=== PATIENT | male | born 1980 | race Caucasian/White ===

== ENCOUNTER 2017-04-15 05:42 | Day surgery (SDC) | payer BC ==
[~2017-04-15] VITALS: Ht 190.5 cm; Wt 102.1 kg
[2017-04-15] VITALS (10 sets, daily range): BP systolic 111–137; BP diastolic 70–84
[~2017-04-15 05:42] MED LIST: BACTROBAN22 G1 TOPIC; CLINDAMYCIN HC300 MG ORAL; GABAPENTIN600 MG ORAL; LEXAPRO10 MG ORAL; PANTOPRAZOLE SO40 MG ORAL; TIVICAY50 MG ORAL; TRAZODONE HCL150 MG ORAL; TRUVADA 200 MG1 EAC1 ORAL
[2017-04-15] MEDS ORDERED: IRON325 M1 PO (06:25)
[2017-04-15] MEDS ORDERED: DESCOVY 200-251 EACH PO (06:25)
[2017-04-15] MEDS ORDERED: TAMSULOSIN HCL0.4 MG ORAL (06:25)
[2017-04-15] MEDS ORDERED: PROBIOTIC1 EAC5 PO (06:26)
[2017-04-15] MEDS ORDERED: LR 1000ml ONE (07:00)
[2017-04-15] MEDS ORDERED: Midazolam 2mg/2ml Inj ONE (07:00)
[2017-04-15] MEDS ORDERED: Sterile Water Irrig 1000ml IRRIG ONE (07:00)
[2017-04-15] MEDS ORDERED: Propofol 10mg/ml 20ml IV ONE (07:00)
[2017-04-15] MEDS ORDERED: fentaNYL 100 mcg/2 mL IV ONE (07:00)
--- NOTE | 2017-04-15 07:07 | Pre-Procedure Note/Attestation ---
Pre-Procedure Note/Attestation Complete Prior to Procedure Planned Procedure: bilateral Procedure Narrative: repair of bilateral inguinal hernias Indications for Procedure Pre-Operative Diagnosis: bilateral inguinal hernias Attestation I attest that I discussed the nature of the procedure; its benefits; risks and complications; and alternatives (and the risks and benefits of such alternatives ), prior to the procedure, with the patient (or the patient's legal volunteer patient representative). I attest that, if there was a reasonable possibility of needing a blood transfusion, the patient (or the patient's legal volunteer patient representative) was given the [facility] standardized written summary, pursuant to the [place] Blood Safety Act ([place] Health and Safety Code # 1645, as amended). I attest that I re-evaluated the patient just prior to the surgery and that there has been no change in the patient's H&P, except as documented below: JUANA POWERS Apr 15, 2017 07:07
[2017-04-15] MEDS ORDERED: Bupivacaine w/Epi 0.25% 30ml Vial INJ ONE ×2 (07:09→08:48)
[2017-04-15] MEDS ORDERED: NS Irrig 1000ml IRRIG ONE (07:25)
--- NOTE | 2017-04-15 07:44 | Anethesia Preoperative Eval ---
Anesthesia Pre-op PMH/ROS General Date of Evaluation: Apr 15, 2017 Time of Evaluation: 07:00 Anesthesiologist: dayna ASA Score: ASA 4 Mallampati Score Class I : Soft palate, uvula, fauces, pillars visible Class II: Soft palate, uvula, fauces visible Class III: Soft palate, base of uvula visible Class IV: Only hard plate visible Mallampati Classification: Class I Surgeon: west Diagnosis: lorna ing hernia Surgical Procedure: lorna inguinal hernia Anesthesia History: none Allergies: Coded Allergies: No Known Allergies (Unverified , 11/23/14) Past Medical History Hematology/Immune: Reports: other - HIV HEP Anesthesia Pre-op Phys. Exam Physician Exam Last Vital Signs Date Time Temp Pulse Resp B/P Pulse Ox O2 Delivery O2 Flow Rate FiO2 04/15/17 06:26 98.4 81 18 135/83 98 Room Air Dede Dolan MD Apr 15, 2017 07:44
[2017-04-15] MEDS ORDERED: Norco 5mg/325mg tab ORAL PRN ×2 (07:45→10:00)
--- NOTE | 2017-04-15 09:10 | Immediate Post-Op Evaluation ---
Immediate Post-Op Evalulation Immediate Post-Op Evalulation Procedure: lorna inguinal hernia repair Date of Evaluation: Apr 15, 2017 Time of Evaluation: 09:10 Blood Products: na Estimated Blood Loss: 5 Nausea: No Vomiting: No Patient Status: awake, patent Hydration Status: adequate Given Within 1 Hr of Incision: Yes Dede Dolan MD Apr 15, 2017 09:10
[2017-04-15] MEDS: fentaNYL 100 mcg/2 mL IV PRN ×2 (09:45→10:07)
--- NOTE | 2017-04-15 09:46 | Brief Operative Note ---
Immediate Post Operative Note Operative Note Pre-op Diagnosis: bilateral inguinal hernias Procedure: Repair of bilateral inguinal hernias Post-op Diagnosis: same as pre-op Surgeon: Renetta Additional Surgeons: Kelsi Anesthesiologist: Kelsi Anesthesia: general Specimen: yes - lipomas of the cord Drains: none Implant(s) used?: Yes - prolene mesh JUANA POWERS Apr 15, 2017 09:46
[2017-04-15] MEDS ORDERED: Hydromorphone 0.5mg/0.5ml inj IVP PRN (10:00)
[2017-04-15] MEDS ORDERED: HYDROmorphone 1mg/ml Carpuject SUBQ PRN (10:00)
[2017-04-15] MEDS ORDERED: DiphenhydrAMINE 50mg/ml Inj IVP PRN (10:00)
--- NOTE | 2017-04-15 10:50 | 48 Hour Post Anesthesia Eval ---
Post Anesthesia Evaluation Procedure: lorna inguinal hernia repair Date of Evaluation: Apr 15, 2017 Time of Evaluation: 10:50 Nausea: No Vomiting: No Mental Status/LOC: patient returned to baseline Follow-up care needed: ready to discharge Dede Dolan MD Apr 15, 2017 10:50
--- NOTE | 2017-04-15 17:30 | Operative Note - Dictated ---
DATE OF OPERATION: 04/15/2017 SURGEON: Amrik Jackson M.D. STAMP MACHINE SERVICER: None. ANESTHESIOLOGIST: . ANESTHESIA: General. PREOPERATIVE DIAGNOSIS: Bilateral inguinal hernia. POSTOPERATIVE DIAGNOSIS: Bilateral inguinal hernia. NAME OF OPERATION: Repair of bilateral inguinal hernia with Prolene mesh. FINDINGS AND INDICATIONS: The patient is a very pleasant 36-year-old male with a history of multiple medical problems including bilateral inguinal hernias, with the right being larger than the left and somewhat painful and tender. Because of the increasing size of these, the patient was advised to undergo repair of the hernias and came in for that. Past history was pertinent for rectal prolapse, , history of hepatitis B, and history of a foot mass. He is being evaluated for repair of the rectal prolapse by Dr. Lauren cordero at [facility]. At surgery indeed bilateral direct inguinal hernias were found, moderate size, more on the right than the left with some lipomas of the cord. PROCEDURE: With the patient lying in the supine position on the operating table, under general anesthesia after a complete time-out with the bilateral lower abdominal and groin regions prepped and draped in usual sterile fashion with Betadine, an oblique right inguinal incision was made following skin lines, subcutaneous tissues divided. The external oblique aponeurosis was opened in the direction of its fibers. The ilioinguinal nerve was identified, left intact and the cord was isolated and skeletonized with no indirect inguinal hernia found and moderate size lipoma of the cord, which was dissected free and ligated up high with 2-0 Vicryl material and amputated and sent to pathology. The direct inguinal hernia was then carefully imbricated with 2-0 Vicryl material and the pelvic floor was reinforced by approximating the shelving edge of the inguinal ligament to the combined aponeurosis of the internal oblique and transversus abdominis muscles using a continuous 2-0 Prolene suture. A slit was made on the lateral aspect of the mesh to allow the cord structures to go through and the Prolene sutures snugly ligated recreating a nice internal ring. The area was irrigated. Hemostasis was adequate. The external oblique aponeurosis was closed over the nerve and the cord with a 3-0 Vicryl continuous suture and the skin was closed with 4-0 Vicryl subcuticular sutures and Steri-Strips. The same was done on the left side, with a symmetrical incision subcutaneous tissues divided, the external oblique aponeurosis opened, the cord isolated and was skeletonized with only finding of a moderate size lipoma, but no indirect inguinal hernia. The direct inguinal hernia was also imbricated with 2-0 Vicryl material and the pelvic floor reinforced in a similar fashion with the Prolene ties, 2-0 Prolene suture with a slit created on the lateral aspect to allow the cord structures to go through and the Prolene sutures snugly ligated after having reinforced the pelvic floor. The area was also irrigated. Hemostasis was adequate and the area was closed with 3-0 Vicryl subcutaneous and external oblique aponeurosis sutures and the skin with 4-0 Vicryl subcuticular sutures and Steri-Strips. Marcaine 0.5% with epinephrine, 40 mL was injected for long-acting local anesthetic. The patient tolerated the procedure well. Estimated blood loss was less than 5 mL. Sponge and needle counts were correct. He went to the recovery room in stable condition. Amrik Jackson M.D. DR: JULIO/ JOB#: [id number] CC:
--- NOTE | 2017-04-16 09:15 | History and Physical Report ---
PERTINENT HISTORY: The patient is a 36-year-old, male with a history of bilateral inguinal hernias, and has been also seen for rectal prolapse. The patient is also seeing a plastic surgeon and a bar host for foot problem. Because of the increasing bulging with some pain and tenderness at both groin areas the patient sought attention from his attending physician, who referred him to me for evaluation and surgical therapy. PAST MEDICAL HISTORY: Pertinent for HIV infection, rectal prolapse, forehead mass and left foot mass. ALLERGIES: None. MEDICATIONS: , Truvada, Lexapro, and tamsulosin. REVIEW OF SYSTEMS: HEENT: No headaches, tinnitus, or dysphagia. Cardiopulmonary: No history of chest pain, shortness of breath, cough, or sputum. Gastrointestinal: No nausea or vomiting. No diarrhea or constipation, nothing to suggest incarceration, gas, or obstruction of the groin hernias. PHYSICAL EXAMINATION: VITAL SIGNS: Blood pressure is 130/82, temperature is 98 degrees, pulse is 70, and respirations are 16. GENERAL: The patient is a well developed, middle-aged male, in no distress. HEENT: Normal. NECK: Supple. LUNGS: Clear. HEART: Rhythmic and regular. ABDOMEN: Soft and flat. Bowel sounds are normoactive. Bilateral inguinal reducible hernia the right larger than the left. IMPRESSION: 1. Bilateral inguinal hernias. 2. Left plantar mass, undetermined type. [facility] is seeing the patient. 3. History of rectal prolapse being seen by Dr. Genao. 4. History of human immunodeficiency virus. PLAN: The patient is to be admitted as an outpatient at [facility] for repair of bilateral inguinal hernias. He understands the nature of the procedure, the indications, the risks, benefits, possible complications, possible recurrence and he wishes to proceed. Amrik Jackson M.D. DR: JD JOB#: [id number] CC:
== END 2017-04-15 13:50 | disposition home or self-care (01) ==
LOC: SUR 05:42
DX: K40.20 Bilateral inguinal hernia, without obstruction or gangrene, not specified as recurrent (principal); D17.6 Benign lipomatous neoplasm of spermatic cord; E78.00 Pure hypercholesterolemia, unspecified; G89.29 Other chronic pain; E29.1 Testicular hypofunction; E79.0 Hyperuricemia without signs of inflammatory arthritis and tophaceous disease; E53.8 Deficiency of other specified B group vitamins; Z86.19 Personal history of other infectious and parasitic diseases; Z87.19 Personal history of other diseases of the digestive system
CPT/HCPCS: 49505; C1781; J0690; J1170; J2250; J2704; J3010; J7120; 94003; 94150

== ENCOUNTER 2018-03-22 16:25 | Inpatient (IN) | payer BC ==
[~2018-03-22] VITALS: Ht 190.5 cm; Wt 99.8 kg
[~2018-03-22 16:25] MED LIST changes: +DESCOVY 200-251 EACH PO; +IRON325 M1 PO; +PROBIOTIC1 EAC5 PO; +TAMSULOSIN HCL0.4 MG ORAL
[2018-03-22 17:10] VITALS: BP 120/73
[2018-03-22] MEDS ORDERED: Gastrograffin 30ml ORAL PRN (17:30)
[2018-03-22] MEDS ORDERED: Isovue-300 100ml vial INJ PRN (17:30)
[2018-03-22 17:51] LABS: HEMATOCRIT 38.3 % (42.0-52.0); HEMOGLOBIN 13.8 G/DL (14.2-18.0); MEAN CORPUSCULAR VOLUME 88 FL (80-99); PLATELET COUNT 250 K/UL (150-450); RED BLOOD COUNT 4.33 M/UL (4.70-6.10); RED CELL DISTRIBUTION WIDTH 11.3 % (11.6-14.8); WHITE BLOOD COUNT 18.2 K/UL (4.8-10.8)
[2018-03-22 18:04] LABS: ANION GAP 9 mmol/L (5-15); BLOOD UREA NITROGEN 11 mg/dL (7-18); CALCIUM 8.6 MG/DL (8.5-10.1); CARBON DIOXIDE 23 MMOL/L (21-32); CHLORIDE 98 MMOL/L (98-107); CREATININE 1.3 MG/DL (0.55-1.30); POTASSIUM 4.4 MMOL/L (3.5-5.1); SODIUM 129 MMOL/L (136-145)
[2018-03-22 18:17] LABS: ALANINE AMINOTRANSFERASE 17 U/L (12-78); ALBUMIN 2.7 G/DL (3.4-5.0); ALBUMIN/GLOBULIN RATIO 0.5 (1.0-2.7); ALKALINE PHOSPHATASE 79 U/L (46-116); ASPARTATE AMINO TRANSFERASE 19 U/L (15-37); BILIRUBIN,TOTAL 1.2 MG/DL (0.2-1.0); CKMB 0.6 NG/ML (0.0-3.6); CREATINE KINASE 87 U/L (26-308); PHOSPHORUS 3.2 MG/DL (2.5-4.9)
[2018-03-22 18:27] LABS: BILIRUBIN,DIRECT 0.2 MG/DL (0.0-0.3)
[2018-03-22] MEDS ORDERED: Ampicillin/Sulbactam Sod 3 GM in NS 110 ML IVPB ONE (18:30)
--- NOTE | 2018-03-22 18:33 | Emergency Room Report ---
History of Present Illness General Chief Complaint: Pain Source: Patient Present Illness HPI Patient is a 37-year-old male brought in by self after increased abdominal pain. Patient had gradual onset of symptoms over the past 3 weeks which had worsened over the past 3 days.The patient was noted to have prior history of HIV and had been on medications. He reports having a nondetectable viral load as well as normal CD4 count. 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 Review of Systems All Other Systems: negative except mentioned in HPI Physical Exam Vital Signs Date Time Temp Pulse Resp B/P (MAP) Pulse Ox O2 Delivery O2 Flow Rate FiO2 03/22/18 16:43 100.9 120 27 113/64 97 Room Air 100.9 Sp02 EP Interpretation: reviewed, normal General Appearance: normal inspection, well appearing, no apparent distress, alert, GCS 15 Head: atraumatic ENT: normal ENT inspection, hearing grossly normal, normal voice Neck: normal inspection, full range of motion, supple, no bony tend Respiratory: normal inspection, lungs clear, normal breath sounds, no respiratory distress, no retraction, no wheezing Cardiovascular #1: regular rate, rhythm, no edema Gastrointestinal: normal inspection, normal bowel sounds, soft, no guarding, no hernia, tenderness - right upper abddomen suprapubic Genitourinary: no CVA tenderness Musculoskeletal: normal inspection, back normal, normal range of motion Neurologic: normal inspection, alert, oriented x3, responsive, thermo processor III-XII nml as tested, speech normal, motor weakness Psychiatric: normal inspection, judgement/insight normal, mood/affect normal Skin: normal inspection, normal color, no rash Medical Decision Making Diagnostic Impression: Primary Impression: Abdominal pain Qualified Codes: R10.84 - Generalized abdominal pain Additional Impression: HIV (human immunodeficiency virus infection) ER Course Patient presented for abdominal pain. Differential diagnoses included ischemic bowel, appendicitis, perforated viscus, abdominal aortic aneurysm, inferior myocardial infarction, viral gastroenteritis Because of complexity of patient's case laboratory testing and imaging studies were ordered.The patient started on IV fluids and IV pain medications. The CT of abdomen and pelvis read by radiology showed underdistention in apparent mild thickening of some small bowel loops. Evolving obstruction was not excluded. Splenomegaly was noted. Right renal cyst and edema/stranding in the peritoneal cavity small amount of fluid in the pelvis of presumed reactive hyperemia of the appendix without appendiceal dilation. The patient was given IV antibiotics. Dr. Paniagua was contacted for surgical consult. Dr. Chapin was contacted for panel physician. Labs Test 03/22/18 17:30 White Blood Count 18.2 K/UL (4.8-10.8) Red Blood Count 4.33 M/UL (4.70-6.10) Hemoglobin 13.8 G/DL (14.2-18.0) Hematocrit 38.3 % (42.0-52.0) Mean Corpuscular Volume 88 FL (80-99) Mean Corpuscular Hemoglobin 31.9 PG (27.0-31.0) Mean Corpuscular Hemoglobin Concent 36.0 G/DL (32.0-36.0) Red Cell Distribution Width 11.3 % (11.6-14.8) Platelet Count 250 K/UL (150-450) Mean Platelet Volume 5.1 FL (6.5-10.1) Neutrophils (%) (Auto) % (45.0-75.0) Lymphocytes (%) (Auto) % (20.0-45.0) Monocytes (%) (Auto) % (1.0-10.0) Eosinophils (%) (Auto) % (0.0-3.0) Basophils (%) (Auto) % (0.0-2.0) Differential Total Cells Counted 100 Neutrophils % (Manual) 84 % (45-75) Lymphocytes % (Manual) 9 % (20-45) Monocytes % (Manual) 5 % (1-10) Eosinophils % (Manual) 0 % (0-3) Basophils % (Manual) 0 % (0-2) Band Neutrophils 2 % (0-8) Platelet Estimate Adequate Platelet Morphology Normal Red Blood Cell Morphology Normal Sodium Level 129 MMOL/L (136-145) Potassium Level 4.4 MMOL/L (3.5-5.1) Chloride Level 98 MMOL/L (98-107) Carbon Dioxide Level 23 MMOL/L (21-32) Anion Gap 9 mmol/L (5-15) Blood Urea Nitrogen 11 mg/dL (7-18) Creatinine 1.3 MG/DL (0.55-1.30) Estimat Glomerular Filtration Rate > 60 mL/min (>60) Glucose Level 102 MG/DL (74-106) Lactic Acid Level 0.70 mmol/L (0.66-2.22) Calcium Level 8.6 MG/DL (8.5-10.1) Phosphorus Level 3.2 MG/DL (2.5-4.9) Magnesium Level 2.0 MG/DL (1.8-2.4) Total Bilirubin 1.2 MG/DL (0.2-1.0) Direct Bilirubin 0.2 MG/DL (0.0-0.3) Aspartate Amino Transf (AST/SGOT) 19 U/L (15-37) Alanine Aminotransferase (ALT/SGPT) 17 U/L (12-78) Alkaline Phosphatase 79 U/L (46-116) Total Creatine Kinase 87 U/L (26-308) Creatine Kinase MB 0.6 NG/ML (0.0-3.6) Creatine Kinase MB Relative Index 0.6 Troponin I 0.000 ng/mL (0.000-0.056) Total Protein 7.8 G/DL (6.4-8.2) Albumin 2.7 G/DL (3.4-5.0) Globulin 5.1 g/dL Albumin/Globulin Ratio 0.5 (1.0-2.7) Last Vital Signs Date Time Temp Pulse Resp B/P (MAP) Pulse Ox O2 Delivery O2 Flow Rate FiO2 03/22/18 17:10 98.0 108 19 120/73 100 Room Air 98.0 Status: unchanged Disposition: ADMITTED INPATIENT Condition: Serious Aftab Acosta MD March 22, 2018 18:33
[2018-03-22 19:20] VITALS: BP 127/77
[2018-03-22] MEDS ORDERED: Morphine Sulfate 4mg/ml Inj IVP ONE (19:45)
--- NOTE | 2018-03-22 21:58 | Consultation ---
History of Present Illness General Date patient seen: March 22, 2018 Chief Complaint: Pain Reason for Consultation: abdmoinal pain Present Illness HPI 37 year old male with history of HIV+ controlled and chronic abdominal pain presented to ED with complaints of worsening abdominal pain. As per patient, he has had abdominal pain for over a decade now. pain intermittent and he has seen multiple providers prior without diagnosis. recently pain worse. states that he has episode of pain that is disabling for a few days then he gets better. pain described as generalized sharp 10/10 abdominal pain without radiation. pain localized over entire abdomen. no nausea or emesis. has had chronic constipation for sometime now and resulted in rectal prolapse which he had surgery for at [facility] in Sep 2017. He states that he has blood with bowel movements for years now. tonight in ED noted to be febrile, tachycardic and leukocytosis. pain generalized and tender on exam. CT with possible enteritis but no sbo or perforation. surgery called to evaluate. Allergies: Coded Allergies: No Known Allergies (Unverified , 11/23/14) Medication History Scheduled Dolutegravir Sodium (Tivicay), 50 MG ORAL DAILY, (Reported) Emtricitabine/Tenofov Alafenam (Descovy 200-25 mg Tablet), 1 EACH PO DAILY, ( Reported) Escitalopram Oxalate* (Lexapro*), 10 MG ORAL DAILY, (Reported) Ferrous Sulfate (Iron), 325 MG PO DAILY, (Reported) Lactobacillus Combo No.11 (Probiotic), 1 EACH PO DAILY, (Reported) Tamsulosin Hcl (Tamsulosin Hcl*), 0.4 MG ORAL BEDTIME, (Reported) Patient History History Provided By: Patient, Medical Record, PMD Healthcare decision maker Resuscitation status Advanced Directive on File Past Medical/Surgical History Past Medical/Surgical History: (1) Constipation (2) HIV (human immunodeficiency virus infection) (3) Chronic wound of extremity (4) Chronic wound of extremity (5) Abscess of face (6) Chronic wound of extremity (7) Abdominal pain Review of Systems All Other Systems: negative except mentioned in HPI Physical Exam General Appearance: no apparent distress Lines, tubes and drains: peripheral HEENT: normocephalic, mucous membranes moist Neck: supple Respiratory/Chest: lungs clear, normal breath sounds, no respiratory distress, no accessory muscle use Cardiovascular/Chest: normal peripheral pulses, tachycardia Abdomen: soft, no organomegaly, no mass, guarding, tender, other - soft tender everywhere on abdomen but exam not consistent. voluntary guarding at times. Extremities: normal inspection Skin Exam: normal pigmentation, warm/dry Neurologic: alert, oriented x 3, responsive Last 24 Hour Vital Signs Date Time Temp Pulse Resp B/P (MAP) Pulse Ox O2 Delivery O2 Flow Rate FiO2 03/22/18 21:19 99.9 106 21 120/67 98 Room Air 03/22/18 19:20 112 26 127/77 97 Room Air 03/22/18 17:10 98.0 108 19 120/73 100 Room Air 98.0 03/22/18 16:43 100.9 120 27 113/64 97 Room Air 100.9 Laboratory Tests Test 03/22/18 17:30 White Blood Count 18.2 K/UL (4.8-10.8) H Red Blood Count 4.33 M/UL (4.70-6.10) L Hemoglobin 13.8 G/DL (14.2-18.0) L Hematocrit 38.3 % (42.0-52.0) L Mean Corpuscular Volume 88 FL (80-99) Mean Corpuscular Hemoglobin 31.9 PG (27.0-31.0) H Mean Corpuscular Hemoglobin Concent 36.0 G/DL (32.0-36.0) Red Cell Distribution Width 11.3 % (11.6-14.8) L Platelet Count 250 K/UL (150-450) Mean Platelet Volume 5.1 FL (6.5-10.1) L Neutrophils (%) (Auto) % (45.0-75.0) Lymphocytes (%) (Auto) % (20.0-45.0) Monocytes (%) (Auto) % (1.0-10.0) Eosinophils (%) (Auto) % (0.0-3.0) Basophils (%) (Auto) % (0.0-2.0) Differential Total Cells Counted 100 Neutrophils % (Manual) 84 % (45-75) H Lymphocytes % (Manual) 9 % (20-45) L Monocytes % (Manual) 5 % (1-10) Eosinophils % (Manual) 0 % (0-3) Basophils % (Manual) 0 % (0-2) Band Neutrophils 2 % (0-8) Platelet Estimate Adequate Platelet Morphology Normal Red Blood Cell Morphology Normal Sodium Level 129 MMOL/L (136-145) L Potassium Level 4.4 MMOL/L (3.5-5.1) Chloride Level 98 MMOL/L (98-107) Carbon Dioxide Level 23 MMOL/L (21-32) Anion Gap 9 mmol/L (5-15) Blood Urea Nitrogen 11 mg/dL (7-18) Creatinine 1.3 MG/DL (0.55-1.30) Estimat Glomerular Filtration Rate > 60 mL/min (>60) Glucose Level 102 MG/DL (74-106) Lactic Acid Level 0.70 mmol/L (0.66-2.22) Calcium Level 8.6 MG/DL (8.5-10.1) Phosphorus Level 3.2 MG/DL (2.5-4.9) Magnesium Level 2.0 MG/DL (1.8-2.4) Total Bilirubin 1.2 MG/DL (0.2-1.0) H Direct Bilirubin 0.2 MG/DL (0.0-0.3) Aspartate Amino Transf (AST/SGOT) 19 U/L (15-37) Alanine Aminotransferase (ALT/SGPT) 17 U/L (12-78) Alkaline Phosphatase 79 U/L (46-116) Total Creatine Kinase 87 U/L (26-308) Creatine Kinase MB 0.6 NG/ML (0.0-3.6) Creatine Kinase MB Relative Index 0.6 Troponin I 0.000 ng/mL (0.000-0.056) Total Protein 7.8 G/DL (6.4-8.2) Albumin 2.7 G/DL (3.4-5.0) L Globulin 5.1 g/dL Albumin/Globulin Ratio 0.5 (1.0-2.7) L Height (Feet): 6 Height (Inches): 3.00 Weight (Pounds): 220 Medications Current Medications Medications (Trade) Dose Ordered Sig/Eduardo Route PRN Reason Start Time Stop Time Status Last Admin Dose Admin Diatrizoate Meglum/ Diatrizoate Sod (Gastrografin) 30 ml NOW PRN ORAL Radiology Procedure 03/22/18 17:30 Iopamidol (Isovue-300 100ml) 100 ml NOW PRN INJ Radiology Procedure 03/22/18 17:30 Assessment/Plan Problem List: (1) Abdominal pain Assessment & Plan: 37M with complicated medical history and chronic pain presents with usual abdominal pain but has fevers, tachycardia, leukocytosis. Exam not very reliable or consistent. CT reviewed. possible enteritis? no abscess, perforation, or acute surgical indication noted. needs further work up. no acute surgical intervention currently NPO IV fluids IV Abx ultrasound abdomen will follow with serial exams. thank you for this consultation. ICD Codes: R10.9 - Unspecified abdominal pain SNOMED: [id number] Qualifiers: Qualified Codes: R10.84 - Generalized abdominal pain Status: stable ArceliaFritz March 22, 2018 21:58
[2018-03-22] MEDS ORDERED: Mylanta II UD 30ml ORAL PRN (22:00)
[2018-03-22] MEDS ORDERED: LORazepam Inj 2mg/ml 1ml IV PRN (22:00)
[2018-03-22] MEDS ORDERED: cefTRIAXone 1 GM in D5W 55 ML IVPB SCH (22:30)
[2018-03-22] MEDS: Piperacillin/Tazobactam 3.375 GM in NS 110 ML IVPB SCH (22:58)
[2018-03-22] MEDS: D5 1/2NS w/KCl 20mEq 1,000 ML IV SCH (22:59)
[2018-03-22] MEDS: Morphine Sulfate 4mg/ml Inj IVP PRN (23:12)
[2018-03-22] MEDS: Tamsulosin 0.4mg cap ORAL SCH (23:12)
[2018-03-23] VITALS (7 sets, daily range): BP systolic 111–127; BP diastolic 71–83
--- NOTE | 2018-03-23 03:45 | History and Physical Report ---
DATE OF ADMISSION: 03/22/2018 HISTORY OF PRESENT ILLNESS: This is a 37-year-old male with a history of HIV positivity and chronic abdominal pain. He came to the hospital with worsening abdominal pain. The patient reports he has had this pain for many years and there has been no further workup or diagnosis established. He states he has chronic constipation. He also has rectal prolapse. He states he previously had surgery for the same. The patient was admitted to the hospital with a diagnosis of enteritis based on imaging studies. PAST SURGICAL HISTORY: None. MEDICATIONS: Home medications, Tivicay, Descovy, Lexapro, iron, and Flomax. ALLERGIES: None. REVIEW OF SYSTEMS: Denies any headaches, hematemesis, melena, or hematochezia. PHYSICAL EXAMINATION: GENERAL: Reveals a 37-year-old male. HEENT: Unremarkable. LUNGS: Clear breath sounds bilaterally. ABDOMEN: Soft. EXTREMITIES: There is no edema. NEUROLOGIC: Nonfocal. LABORATORY AND DIAGNOSTIC DATA: Lab testing is notable for white count 18 and hemoglobin of 13. Chemistries are normal. Bilirubin 1.2. Imaging study discussed above. IMPRESSION: 1. Leukocytosis. 2. History of chronic abdominal pain. 3. Human immunodeficiency virus positivity. DISCUSSION: Admitted to the hospital. The patient had been seen by Surgery and has been started on Zosyn and other pain medications. I will follow carefully as relay dispatcher and commissioning specialist. Discussed with at bedside. Jonas Rick M.D. DR: BRIAN JOB#: [id number] CC:
[2018-03-23] MEDS: Lactulose 20gm/30ml UDC ORAL SCH ×4 (03:55→17:09)
[2018-03-23] MEDS: Piperacillin/Tazobactam 3.375 GM in NS 110 ML IVPB SCH ×3 (05:38→22:00)
[2018-03-23] MEDS: Morphine Sulfate 4mg/ml Inj IVP PRN ×5 (06:02→22:00)
[2018-03-23 07:48] LABS: HEMATOCRIT 40.5 % (42.0-52.0); HEMOGLOBIN 13.7 G/DL (14.2-18.0); MEAN CORPUSCULAR VOLUME 91 FL (80-99); PLATELET COUNT 243 K/UL (150-450); RED BLOOD COUNT 4.43 M/UL (4.70-6.10); RED CELL DISTRIBUTION WIDTH 11.3 % (11.6-14.8); WHITE BLOOD COUNT 19.6 K/UL (4.8-10.8)
[2018-03-23 08:01] LABS: INR 1.1 (0.9-1.1)
[2018-03-23 08:07] LABS: ALANINE AMINOTRANSFERASE 18 U/L (12-78); ALBUMIN 2.5 G/DL (3.4-5.0); ALKALINE PHOSPHATASE 96 U/L (46-116); ANION GAP 7 mmol/L (5-15); ASPARTATE AMINO TRANSFERASE 12 U/L (15-37); BILIRUBIN,DIRECT 0.4 MG/DL (0.0-0.3); BILIRUBIN,TOTAL 1.2 MG/DL (0.2-1.0); BLOOD UREA NITROGEN 13 mg/dL (7-18); CARBON DIOXIDE 29 MMOL/L (21-32); CHLORIDE 97 MMOL/L (98-107); CREATININE 1.5 MG/DL (0.55-1.30); LACTATE DEHYDROGENASE 166 U/L (81-234); POTASSIUM 4.2 MMOL/L (3.5-5.1); SODIUM 132 MMOL/L (136-145)
--- NOTE | 2018-03-23 09:01 | Diagnostic Imaging Report ---
Indication: Shortness of breath Technique: One view of the chest Comparison: none Findings: Lungs and pleural spaces are clear. Heart size is normal Impression: No acute process
--- NOTE | 2018-03-23 09:50 | Diagnostic Imaging Report ---
Clinical Indication: Abdominal pain x3 months, fever, elevated white blood cell count Technique: No oral contrast utilized, per emergency room physician request IV administration nonionic contrast. Venous phase spiral acquisition obtained through the abdomen and pelvis. Multiplanar reconstructions were generated. Total dose length product 852.17 mGycm. CTDIvol(s) 15.03 mGy. Dose reduction achieved using automated exposure control Comparison: none Findings: No evidence of diverticulosis or diverticulitis. The appendix is normal. The proximal colon is fluid-filled, equivocally slightly thick walled. The distal colon is nondistended. There is mild nonspecific gaseous distention of a few small bowel loops, and some fluid is also seen in the small bowel. There is mild congestion of the mesenteric fat. The distal esophagus, stomach, duodenum are unremarkable. There is a small amount of fluid in the pelvis. No free intraperitoneal air The liver, gallbladder, bile ducts, pancreas are unremarkable. The spleen is enlarged, measuring 15 cm long axis dimension. The adrenals are unremarkable. The right kidney demonstrates an interpolar region cyst. Left kidney demonstrates subcentimeter low-attenuation lesions which are too small to characterize. No retroperitoneal or mesenteric mass or adenopathy. No pelvic mass or adenopathy. The lung bases demonstrate dependent posterior atelectatic changes. The bones are unremarkable. Impression: Nonspecific mildly fluid-filled proximal colon and small bowel, could indicate enteritis changes. Early/partial small bowel obstruction less likely although possible Splenomegaly There is congestion of the mesenteric fat, nonspecific as regards etiology, could be inflammatory or other hemodynamic basis Right renal cyst, basilar dependent pulmonary atelectatic changes are incidentally noted This agrees with the preliminary interpretation provided overnight by [facility] teleradiology service. The CT scanner at [facility] is accredited by the [employer] [place] and the scans are performed using protocols designed to limit radiation exposure to as low as reasonably achievable to attain images of sufficient resolution adequate for diagnostic evaluation.
--- NOTE | 2018-03-23 10:50 | Pulmonology Progress Note ---
Assessment/Plan Assessment/Plan 1. Leukocytosis. 2. History of chronic abdominal pain. 3. Human immunodeficiency virus positivity. DISCUSSION: Admitted to the hospital. The patient had been seen by Surgery and has been started on Zosyn and other pain medications. 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 Will consult GI and ID Check labs AM Subjective Interval Events: Still has high WBC Constitutional: Reports: no symptoms HEENT: Repors: no symptoms Respiratory: Reports: no symptoms Cardiovascular: Reports: no symptoms Allergies: Coded Allergies: No Known Allergies (Unverified , 11/23/14) Objective Last 24 Hour Vital Signs Date Time Temp Pulse Resp B/P (MAP) Pulse Ox O2 Delivery O2 Flow Rate FiO2 03/23/18 04:55 99.2 03/23/18 04:00 100.1 98 20 112/71 98 100.1 03/23/18 03:56 100.1 03/23/18 00:00 99.1 101 20 113/72 96 99.1 03/22/18 21:19 99.9 106 21 120/67 98 Room Air 03/22/18 19:20 112 26 127/77 97 Room Air 03/22/18 17:10 98.0 108 19 120/73 100 Room Air 98.0 03/22/18 16:43 100.9 120 27 113/64 97 Room Air 100.9 Intake and Output 03/22/18 03/23/18 19:00 07:00 Intake Total 1285.0 ml Output Total 0 ml Balance 0 ml 1285.0 ml Intake Oral 300 ml IV Total 985.0 ml Output Urine Total 0 ml # Voids 1 General Appearance: no acute distress HEENT: normocephalic Respiratory/Chest: chest wall non-tender, lungs clear Cardiovascular: normal peripheral pulses Abdomen: normal bowel sounds Laboratory Tests 03/22/18 17:30: White Blood Count 18.2H, Red Blood Count 4.33L, Hemoglobin 13.8L, Hematocrit 38.3L, Mean Corpuscular Volume 88, Mean Corpuscular Hemoglobin 31.9H, Mean Corpuscular Hemoglobin Concent 36.0, Red Cell Distribution Width 11.3L, Platelet Count 250, Mean Platelet Volume 5.1L, Neutrophils (%) (Auto) , Lymphocytes (%) (Auto) , Monocytes (%) (Auto) , Eosinophils (%) (Auto) , Basophils (%) (Auto) , Differential Total Cells Counted 100, Neutrophils % ( Manual) 84H, Lymphocytes % (Manual) 9L, Monocytes % (Manual) 5, Eosinophils % ( Manual) 0, Basophils % (Manual) 0, Band Neutrophils 2, Platelet Estimate Adequate, Platelet Morphology Normal, Red Blood Cell Morphology Normal, Sodium Level 129L, Potassium Level 4.4, Chloride Level 98, Carbon Dioxide Level 23, Anion Gap 9, Blood Urea Nitrogen 11, Creatinine 1.3, Estimat Glomerular Filtration Rate > 60, Glucose Level 102, Lactic Acid Level 0.70, Calcium Level 8.6, Phosphorus Level 3.2, Magnesium Level 2.0, Total Bilirubin 1.2H, Direct Bilirubin 0.2, Aspartate Amino Transf (AST/SGOT) 19, Alanine Aminotransferase ( ALT/SGPT) 17, Alkaline Phosphatase 79, Total Creatine Kinase 87, Creatine Kinase MB 0.6, Creatine Kinase MB Relative Index 0.6, Troponin I 0.000, Total Protein 7.8, Albumin 2.7L, Globulin 5.1, Albumin/Globulin Ratio 0.5L 03/23/18 07:15: White Blood Count 19.6H, Red Blood Count 4.43L, Hemoglobin 13.7L, Hematocrit 40.5L, Mean Corpuscular Volume 91, Mean Corpuscular Hemoglobin 30.8, Mean Corpuscular Hemoglobin Concent 33.7, Red Cell Distribution Width 11.3L, Platelet Count 243, Mean Platelet Volume 5.0L, Neutrophils (%) (Auto) , Lymphocytes (%) (Auto) , Monocytes (%) (Auto) , Eosinophils (%) (Auto) , Basophils (%) (Auto) , Differential Total Cells Counted 100, Neutrophils % ( Manual) 90H, Lymphocytes % (Manual) 7L, Monocytes % (Manual) 3, Eosinophils % ( Manual) 0, Basophils % (Manual) 0, Band Neutrophils 0, Platelet Estimate Adequate, Platelet Morphology Normal, Red Blood Cell Morphology Normal, Sodium Level 132L, Potassium Level 4.2, Chloride Level 97L, Carbon Dioxide Level 29, Anion Gap 7, Blood Urea Nitrogen 13, Creatinine 1.5H, Estimat Glomerular Filtration Rate 52.4, Glucose Level 118H, Calcium Level 9.0, Total Bilirubin 1.2H, Direct Bilirubin 0.4H, Aspartate Amino Transf (AST/SGOT) 12L, Alanine Aminotransferase (ALT/SGPT) 18, Alkaline Phosphatase 96, Total Protein 7.4, Albumin 2.5L, Prothrombin Time 11.5, Prothromb Time International Ratio 1.1, Activated Partial Thromboplast Time 37H, Lactate Dehydrogenase 166 Current Medications Medications (Trade) Dose Ordered Sig/Eduardo Route PRN Reason Start Time Stop Time Status Last Admin Dose Admin Acetaminophen (Tylenol) 650 mg Q4H PRN ORAL Fever 03/22/18 22:00 04/21/18 21:59 03/23/18 03:56 Acetaminophen (Tylenol) 650 mg Q6H PRN ORAL Mild Pain/Temp > 100.5 03/22/18 22:30 04/21/18 22:29 Al Hydroxide/Mg Hydroxide (Mylanta II) 30 ml Q6H PRN ORAL GI UPSET 03/22/18 22:00 04/21/18 21:59 Dextrose (Dextrose 50%) 25 ml STAT PRN IV Hypoglycemia 03/22/18 22:00 04/21/18 21:59 Dextrose (Dextrose 50%) 25 ml STAT PRN IV Hypoglycemia 03/22/18 22:30 04/21/18 22:29 Dextrose (Dextrose 50%) 50 ml STAT PRN IV Hypoglycemia 03/22/18 22:00 04/21/18 21:59 Dextrose (Dextrose 50%) 50 ml STAT PRN IV Hypoglycemia 03/22/18 22:30 04/21/18 22:29 Dextrose/ Electrolytes 1,000 ml @ 125 mls/hr Q8H IV 03/22/18 22:58 04/21/18 22:57 03/22/18 22:59 Diatrizoate Meglum/ Diatrizoate Sod (Gastrografin) 30 ml NOW PRN ORAL Radiology Procedure 03/22/18 17:30 03/23/18 23:00 Diphenhydramine HCl (Benadryl) 25 mg Q6H PRN ORAL Itching/Pruritis 03/22/18 22:00 04/21/18 21:59 Dolutegravir Sodium (Tivicay) 50 mg DAILY ORAL 03/23/18 09:00 04/22/18 08:59 UNV Emtricitabine/ Tenofovir (Truvada 200/ 300mg) 1 tab DAILY ORAL 03/23/18 09:00 04/22/18 08:59 UNV Escitalopram Oxalate (Lexapro) 10 mg DAILY ORAL 03/23/18 09:00 04/22/18 08:59 03/23/18 08:57 Famotidine (Pepcid I.v.) 20 mg Q12HR IVP 03/23/18 09:00 04/22/18 08:59 03/23/18 08:57 Ferrous Sulfate (Feosol) 325 mg DAILY ORAL 03/23/18 09:00 04/22/18 08:59 03/23/18 08:57 Iopamidol (Isovue-300 100ml) 100 ml NOW PRN INJ Radiology Procedure 03/22/18 17:30 03/23/18 23:00 Lactulose (Cephulac) 30 gm THREE TIMES A DAY ORAL 03/22/18 23:00 04/21/18 22:59 03/23/18 08:57 Lorazepam (Ativan 2mg/ml 1ml) 0.5 mg Q4H PRN IV For Anxiety 03/22/18 22:00 03/29/18 21:59 Morphine Sulfate (Morphine Sulfate) 4 mg EVERY 3 HOURS PRN IVP Severe Pain (Pain Scale 7-10) 03/22/18 22:00 03/29/18 21:59 03/23/18 06:02 Ondansetron HCl (Zofran) 4 mg Q6H PRN IVP Nausea & Vomiting 03/22/18 22:00 04/21/18 21:59 Piperacillin Sod/ Tazobactam Sod 3.375 gm/Sodium Chloride 110 ml @ 27.5 mls/hr EVERY 8 HOURS IVPB 03/22/18 22:00 03/27/18 21:59 03/23/18 05:38 Tamsulosin HCl (Flomax) 0.4 mg BEDTIME ORAL 03/22/18 22:51 04/21/18 22:50 03/22/18 23:12 Temazepam (Restoril) 15 mg HSPRN PRN ORAL Insomnia 03/22/18 22:00 03/29/18 21:59 Jonas Rick MD March 23, 2018 10:50
--- NOTE | 2018-03-23 14:13 | Diagnostic Imaging Report ---
Indication: Abdominal pain, abnormal bilirubin Technique: Pulliam-scale and duplex images of the upper abdomen were obtained Comparison: Reference made to CT scan 03/22/2018 Findings: Gallbladder contains sludge. No stones, wall thickening, nor pericholecystic fluid. Sonographic Carlos's sign is negative. Common bile duct measures 7 mm in diameter. No intrahepatic biliary ductal dilatation. Liver demonstrates normal echogenicity, no focal abnormality. It is enlarged. Portal vein and hepatic veins are patent. Pancreas is obscured by bowel gas. The spleen is enlarged, measuring 13.4 cm long axis dimension. Left kidney measures 12 cm in length. Right kidney measures 11 cm length. Both kidneys demonstrate normal echogenicity. There is no hydronephrosis. Right kidney demonstrates a small cyst . Abdominal aorta is obscured by bowel gas . Trace ascites fluid is seen surrounding the spleen Impression: Gallbladder sludge. Negative for gallstones Mildly dilated common bile duct. Downstream obstruction not excludable. Correlate with liver function tests, consider MRCP if clinically indicated Mild hepatomegaly Mild splenomegaly Trace ascites Somewhat limited exam, with inability to visualize the pancreas and the abdominal aorta Right renal cyst incidentally noted
--- NOTE | 2018-03-23 14:25 | General Surgery Progress Note ---
General Surgery-Progress Note Subjective Additional Comments states he still has abdominal pain and is same. no n/v. fevers. leukocytosis. wants dilaudid. 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 Objective Last 24 Hour Vital Signs Date Time Temp Pulse Resp B/P (MAP) Pulse Ox O2 Delivery O2 Flow Rate FiO2 03/23/18 13:58 97.6 03/23/18 12:21 97.6 03/23/18 12:00 99.9 101 19 119/71 98 Room Air 99.9 03/23/18 11:13 97.6 03/23/18 08:00 97.6 86 19 111/74 98 Room Air 97.6 03/23/18 04:55 99.2 03/23/18 04:00 100.1 98 20 112/71 98 100.1 03/23/18 03:56 100.1 03/23/18 00:00 99.1 101 20 113/72 96 99.1 03/22/18 21:19 99.9 106 21 120/67 98 Room Air 03/22/18 19:20 112 26 127/77 97 Room Air 03/22/18 17:10 98.0 108 19 120/73 100 Room Air 98.0 03/22/18 16:43 100.9 120 27 113/64 97 Room Air 100.9 I&O Intake and Output 03/22/18 03/23/18 19:00 07:00 Intake Total 1285.0 ml Output Total 0 ml Balance 0 ml 1285.0 ml Intake Oral 300 ml IV Total 985.0 ml Output Urine Total 0 ml # Voids 1 Cardiovascular: RSR Respiratory: clear Abdomen: soft, tenderness, present bowel sounds Extremities: no cyanosis Laboratory Tests Test 03/22/18 17:30 03/23/18 07:15 03/23/18 13:05 White Blood Count 18.2 K/UL (4.8-10.8) H 19.6 K/UL (4.8-10.8) H Pending Red Blood Count 4.33 M/UL (4.70-6.10) L 4.43 M/UL (4.70-6.10) L Hemoglobin 13.8 G/DL (14.2-18.0) L 13.7 G/DL (14.2-18.0) L Hematocrit 38.3 % (42.0-52.0) L 40.5 % (42.0-52.0) L Mean Corpuscular Volume 88 FL (80-99) 91 FL (80-99) Mean Corpuscular Hemoglobin 31.9 PG (27.0-31.0) H 30.8 PG (27.0-31.0) Mean Corpuscular Hemoglobin Concent 36.0 G/DL (32.0-36.0) 33.7 G/DL (32.0-36.0) Red Cell Distribution Width 11.3 % (11.6-14.8) L 11.3 % (11.6-14.8) L Platelet Count 250 K/UL (150-450) 243 K/UL (150-450) Mean Platelet Volume 5.1 FL (6.5-10.1) L 5.0 FL (6.5-10.1) L Neutrophils (%) (Auto) % (45.0-75.0) % (45.0-75.0) Lymphocytes (%) (Auto) % (20.0-45.0) % (20.0-45.0) Monocytes (%) (Auto) % (1.0-10.0) % (1.0-10.0) Eosinophils (%) (Auto) % (0.0-3.0) % (0.0-3.0) Basophils (%) (Auto) % (0.0-2.0) % (0.0-2.0) Differential Total Cells Counted 100 100 Neutrophils % (Manual) 84 % (45-75) H 90 % (45-75) H Lymphocytes % (Manual) 9 % (20-45) L 7 % (20-45) L Monocytes % (Manual) 5 % (1-10) 3 % (1-10) Eosinophils % (Manual) 0 % (0-3) 0 % (0-3) Basophils % (Manual) 0 % (0-2) 0 % (0-2) Band Neutrophils 2 % (0-8) 0 % (0-8) Platelet Estimate Adequate Adequate Platelet Morphology Normal Normal Red Blood Cell Morphology Normal Normal Sodium Level 129 MMOL/L (136-145) L 132 MMOL/L (136-145) L Potassium Level 4.4 MMOL/L (3.5-5.1) 4.2 MMOL/L (3.5-5.1) Chloride Level 98 MMOL/L (98-107) 97 MMOL/L (98-107) L Carbon Dioxide Level 23 MMOL/L (21-32) 29 MMOL/L (21-32) Anion Gap 9 mmol/L (5-15) 7 mmol/L (5-15) Blood Urea Nitrogen 11 mg/dL (7-18) 13 mg/dL (7-18) Creatinine 1.3 MG/DL (0.55-1.30) 1.5 MG/DL (0.55-1.30) H Estimat Glomerular Filtration Rate > 60 mL/min (>60) 52.4 mL/min (>60) Glucose Level 102 MG/DL (74-106) 118 MG/DL (74-106) H Lactic Acid Level 0.70 mmol/L (0.66-2.22) Calcium Level 8.6 MG/DL (8.5-10.1) 9.0 MG/DL (8.5-10.1) Phosphorus Level 3.2 MG/DL (2.5-4.9) Magnesium Level 2.0 MG/DL (1.8-2.4) Total Bilirubin 1.2 MG/DL (0.2-1.0) H 1.2 MG/DL (0.2-1.0) H Direct Bilirubin 0.2 MG/DL (0.0-0.3) 0.4 MG/DL (0.0-0.3) H Aspartate Amino Transf (AST/SGOT) 19 U/L (15-37) 12 U/L (15-37) L Alanine Aminotransferase (ALT/SGPT) 17 U/L (12-78) 18 U/L (12-78) Alkaline Phosphatase 79 U/L (46-116) 96 U/L (46-116) Total Creatine Kinase 87 U/L (26-308) Creatine Kinase MB 0.6 NG/ML (0.0-3.6) Creatine Kinase MB Relative Index 0.6 Troponin I 0.000 ng/mL (0.000-0.056) Total Protein 7.8 G/DL (6.4-8.2) 7.4 G/DL (6.4-8.2) Albumin 2.7 G/DL (3.4-5.0) L 2.5 G/DL (3.4-5.0) L Globulin 5.1 g/dL Albumin/Globulin Ratio 0.5 (1.0-2.7) L Prothrombin Time 11.5 SEC (9.30-11.50) Prothromb Time International Ratio 1.1 (0.9-1.1) Activated Partial Thromboplast Time 37 SEC (23-33) H Lactate Dehydrogenase 166 U/L (81-234) Lymphocytes Pending Percent CD3 Cells Pending Absolute CD3 Count Pending Percent CD4 Cells Pending Absolute CD4 Count Pending T-Lymphocyte CD4/CD8 Ratio Pending Percent CD8 Cells Pending Absolute CD8 Count Pending Plan Problems: (1) Abdominal pain Assessment & Plan: 37M with complicated medical history and chronic pain presents with usual abdominal pain but has fevers, tachycardia, leukocytosis. Exam not very reliable or consistent. CT reviewed. possible enteritis? no abscess, perforation, or acute surgical indication noted. ultrasound with sludge but no stones. 7mm cbd needs further work up. no acute surgical intervention currently okay for clears IV fluids IV Abx will follow with serial exams. thank you for this consultation. Fritz Paniagua March 23, 2018 14:25
--- NOTE | 2018-03-23 14:36 | Cardiology Report ---
APPROVED REPORT EKG Measurement Heart [id number] Sinus tachycardia Possible Left atrial enlargement Borderline ECG
--- NOTE | 2018-03-23 14:57 | GI Initial Consult Note ---
History of Present Illness General Date patient seen: March 23, 2018 Time patient seen: 15:00 Reason for Hospitalization: Pain Referring physician: BELA HERNÁNDEZ Reason for Consultation: abdmoinal pain Present Illness HPI Patient is a 37-year-old male brought in by self after increased abdominal pain. Patient had gradual onset of symptoms over the past 3 weeks which had worsened over the past 3 days.The patient was noted to have prior history of HIV and had been on medications. He reports having a nondetectable viral load as well as normal CD4 count. 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 GI consulted for abdominal pain. Pt seen, awake A&Ox4 presents today with c/o of abdominal pain with epigastric tenderness. History of Hepatitis B and rectal prolapse. Labs reviewed show leukocytosis and mild bilirubin elevation. MRI reviewed show CBD ductal dilation of 7mm with no definite downstream obstructive lesion. Also noted with mildly dilated fluid-filled small bowel loops, possibility of enteritis. Denies any recent travels or changes in dietary habits. Patient admits to marijuana drug use. Denies any diarrhea. Has nausea without vomiting. No history of endoscopy / colonoscopy. Home Meds Reported Medications Lactobacillus Combo No.11 (PROBIOTIC) 1 Each Cap.sprink, 1 EACH PO DAILY, CAP 04/15/17 Ferrous Sulfate (IRON) 325 Mg Tablet, 325 MG PO DAILY, TAB 04/15/17 Tamsulosin Hcl (TAMSULOSIN HCL*) 0.4 Mg Cap.er.24h, 0.4 MG ORAL BEDTIME, CAP 04/15/17 Emtricitabine/Tenofov Alafenam (Descovy 200-25 mg Tablet) 1 Each Tablet, 1 EACH PO DAILY, TAB 04/15/17 Escitalopram Oxalate* (LEXAPRO*) 10 Mg Tablet, 10 MG ORAL DAILY, TAB 11/23/14 Dolutegravir Sodium (Tivicay) 50 Mg Tablet, 50 MG ORAL DAILY, TAB 11/23/14 Med list reviewed/reconciled: Yes Allergies: Coded Allergies: No Known Allergies (Unverified , 11/23/14) Patient History History Provided By: Patient, Medical Record PMH Narrative Past Medical History: see triage record Reviewed Nursing Documentation: PMH: Agreed; PSxH: Agreed Nursing Documentation-PM Past Medical History: No History, Except For Hx Cardiac Problems: No Hx Cancer: No - HIV, hep b, Hx Gastrointestinal Problems: Yes 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 Social History: Reports: drug use Review of Systems All Other Systems: negative except mentioned in HPI Physical Exam Vital Signs Date Time Temp Pulse Resp B/P (MAP) Pulse Ox O2 Delivery O2 Flow Rate FiO2 03/22/18 16:43 100.9 120 27 113/64 97 Room Air 100.9 Sp02 EP Interpretation: reviewed, normal Labs Laboratory Tests Test 03/22/18 17:30 03/23/18 07:15 03/23/18 13:05 White Blood Count 18.2 K/UL (4.8-10.8) H 19.6 K/UL (4.8-10.8) H Pending Red Blood Count 4.33 M/UL (4.70-6.10) L 4.43 M/UL (4.70-6.10) L Hemoglobin 13.8 G/DL (14.2-18.0) L 13.7 G/DL (14.2-18.0) L Hematocrit 38.3 % (42.0-52.0) L 40.5 % (42.0-52.0) L Mean Corpuscular Volume 88 FL (80-99) 91 FL (80-99) Mean Corpuscular Hemoglobin 31.9 PG (27.0-31.0) H 30.8 PG (27.0-31.0) Mean Corpuscular Hemoglobin Concent 36.0 G/DL (32.0-36.0) 33.7 G/DL (32.0-36.0) Red Cell Distribution Width 11.3 % (11.6-14.8) L 11.3 % (11.6-14.8) L Platelet Count 250 K/UL (150-450) 243 K/UL (150-450) Mean Platelet Volume 5.1 FL (6.5-10.1) L 5.0 FL (6.5-10.1) L Neutrophils (%) (Auto) % (45.0-75.0) % (45.0-75.0) Lymphocytes (%) (Auto) % (20.0-45.0) % (20.0-45.0) Monocytes (%) (Auto) % (1.0-10.0) % (1.0-10.0) Eosinophils (%) (Auto) % (0.0-3.0) % (0.0-3.0) Basophils (%) (Auto) % (0.0-2.0) % (0.0-2.0) Differential Total Cells Counted 100 100 Neutrophils % (Manual) 84 % (45-75) H 90 % (45-75) H Lymphocytes % (Manual) 9 % (20-45) L 7 % (20-45) L Monocytes % (Manual) 5 % (1-10) 3 % (1-10) Eosinophils % (Manual) 0 % (0-3) 0 % (0-3) Basophils % (Manual) 0 % (0-2) 0 % (0-2) Band Neutrophils 2 % (0-8) 0 % (0-8) Platelet Estimate Adequate Adequate Platelet Morphology Normal Normal Red Blood Cell Morphology Normal Normal Sodium Level 129 MMOL/L (136-145) L 132 MMOL/L (136-145) L Potassium Level 4.4 MMOL/L (3.5-5.1) 4.2 MMOL/L (3.5-5.1) Chloride Level 98 MMOL/L (98-107) 97 MMOL/L (98-107) L Carbon Dioxide Level 23 MMOL/L (21-32) 29 MMOL/L (21-32) Anion Gap 9 mmol/L (5-15) 7 mmol/L (5-15) Blood Urea Nitrogen 11 mg/dL (7-18) 13 mg/dL (7-18) Creatinine 1.3 MG/DL (0.55-1.30) 1.5 MG/DL (0.55-1.30) H Estimat Glomerular Filtration Rate > 60 mL/min (>60) 52.4 mL/min (>60) Glucose Level 102 MG/DL (74-106) 118 MG/DL (74-106) H Lactic Acid Level 0.70 mmol/L (0.66-2.22) Calcium Level 8.6 MG/DL (8.5-10.1) 9.0 MG/DL (8.5-10.1) Phosphorus Level 3.2 MG/DL (2.5-4.9) Magnesium Level 2.0 MG/DL (1.8-2.4) Total Bilirubin 1.2 MG/DL (0.2-1.0) H 1.2 MG/DL (0.2-1.0) H Direct Bilirubin 0.2 MG/DL (0.0-0.3) 0.4 MG/DL (0.0-0.3) H Aspartate Amino Transf (AST/SGOT) 19 U/L (15-37) 12 U/L (15-37) L Alanine Aminotransferase (ALT/SGPT) 17 U/L (12-78) 18 U/L (12-78) Alkaline Phosphatase 79 U/L (46-116) 96 U/L (46-116) Total Creatine Kinase 87 U/L (26-308) Creatine Kinase MB 0.6 NG/ML (0.0-3.6) Creatine Kinase MB Relative Index 0.6 Troponin I 0.000 ng/mL (0.000-0.056) Total Protein 7.8 G/DL (6.4-8.2) 7.4 G/DL (6.4-8.2) Albumin 2.7 G/DL (3.4-5.0) L 2.5 G/DL (3.4-5.0) L Globulin 5.1 g/dL Albumin/Globulin Ratio 0.5 (1.0-2.7) L Prothrombin Time 11.5 SEC (9.30-11.50) Prothromb Time International Ratio 1.1 (0.9-1.1) Activated Partial Thromboplast Time 37 SEC (23-33) H Lactate Dehydrogenase 166 U/L (81-234) Lymphocytes Pending Percent CD3 Cells Pending Absolute CD3 Count Pending Percent CD4 Cells Pending Absolute CD4 Count Pending T-Lymphocyte CD4/CD8 Ratio Pending Percent CD8 Cells Pending Absolute CD8 Count Pending General Appearance: well appearing, no apparent distress, alert Head: normocephalic EENT: PERRL/EOMI, normal ENT inspection Neck: supple Respiratory: normal breath sounds, no respiratory distress Cardiovascular: normal rate Gastrointestinal: normal inspection, non tender, soft, normal bowel sounds, non -distended Rectal: deferred Genitourinary: deferred Musculoskeletal: normal inspection, back normal Neurologic: normal inspection, alert, oriented x3, responsive Psychiatric: normal inspection, judgement/insight normal, memory normal Skin: normal inspection, normal color, no rash, warm/dry, palpation normal, well hydrated Lymphatic: normal inspection, no adenopathy Current Medications Current Medications Medications (Trade) Dose Ordered Sig/Eduardo Route PRN Reason Start Time Stop Time Status Last Admin Dose Admin Acetaminophen (Tylenol) 650 mg Q4H PRN ORAL Fever 03/22/18 22:00 04/21/18 21:59 03/23/18 03:56 Acetaminophen (Tylenol) 650 mg Q6H PRN ORAL Mild Pain/Temp > 100.5 03/22/18 22:30 04/21/18 22:29 Al Hydroxide/Mg Hydroxide (Mylanta II) 30 ml Q6H PRN ORAL GI UPSET 03/22/18 22:00 04/21/18 21:59 Dextrose (Dextrose 50%) 25 ml STAT PRN IV Hypoglycemia 03/22/18 22:30 04/21/18 22:29 Dextrose (Dextrose 50%) 50 ml STAT PRN IV Hypoglycemia 03/22/18 22:00 04/21/18 21:59 Dextrose (Dextrose 50%) 50 ml STAT PRN IV Hypoglycemia 03/22/18 22:30 04/21/18 22:29 Dextrose/ Electrolytes 1,000 ml @ 125 mls/hr Q8H IV 03/22/18 22:58 04/21/18 22:57 03/22/18 22:59 Diatrizoate Meglum/ Diatrizoate Sod (Gastrografin) 30 ml NOW PRN ORAL Radiology Procedure 03/22/18 17:30 03/23/18 23:00 Diphenhydramine HCl (Benadryl) 25 mg Q6H PRN ORAL Itching/Pruritis 03/22/18 22:00 04/21/18 21:59 Dolutegravir Sodium (Tivicay) 50 mg DAILY ORAL 03/23/18 09:00 04/22/18 08:59 UNV Emtricitabine/ Tenofovir (Truvada 200/ 300mg) 1 tab DAILY ORAL 03/23/18 09:00 04/22/18 08:59 UNV Escitalopram Oxalate (Lexapro) 10 mg DAILY ORAL 03/23/18 09:00 04/22/18 08:59 03/23/18 08:57 Famotidine (Pepcid I.v.) 20 mg Q12HR IVP 03/23/18 09:00 04/22/18 08:59 03/23/18 08:57 Ferrous Sulfate (Feosol) 325 mg DAILY ORAL 03/23/18 09:00 04/22/18 08:59 03/23/18 08:57 Iopamidol (Isovue-300 100ml) 100 ml NOW PRN INJ Radiology Procedure 03/22/18 17:30 03/23/18 23:00 Lactulose (Cephulac) 30 gm THREE TIMES A DAY ORAL 03/22/18 23:00 04/21/18 22:59 03/23/18 08:57 Lorazepam (Ativan 2mg/ml 1ml) 0.5 mg Q4H PRN IV For Anxiety 03/22/18 22:00 03/29/18 21:59 Morphine Sulfate (Morphine Sulfate) 4 mg EVERY 3 HOURS PRN IVP Severe Pain (Pain Scale 7-10) 03/22/18 22:00 03/29/18 21:59 03/23/18 13:58 Ondansetron HCl (Zofran) 4 mg Q6H PRN IVP Nausea & Vomiting 03/22/18 22:00 04/21/18 21:59 Piperacillin Sod/ Tazobactam Sod 3.375 gm/Sodium Chloride 110 ml @ 27.5 mls/hr EVERY 8 HOURS IVPB 03/22/18 22:00 03/27/18 21:59 03/23/18 05:38 Tamsulosin HCl (Flomax) 0.4 mg BEDTIME ORAL 03/22/18 22:51 04/21/18 22:50 03/22/18 23:12 Temazepam (Restoril) 15 mg HSPRN PRN ORAL Insomnia 03/22/18 22:00 03/29/18 21:59 GI: Plan Problems: (1) Enteritis (2) Hepatitis B (3) HIV (human immunodeficiency virus infection) (4) Drug use (5) Abdominal pain Plan MRI reviewedm, see full report. >> Mildly ectatic common bile duct. Mildly dilated fluid-filled small bowel loops, most likely enteritis or ileus. nausea without vomiting no diarrhea history of hepatitis B rectal prolapse epigastric tenderness obtain drug utox symptomatic treatment adv diet as tolerated pain mgmt ppi prn transfusions abx trend LFTs fu labs, hepatitis panel Discussed with Dr. Jo. Thank you for this patient referral, we will follow. The patient was seen and examined at bedside and all new and available data was reviewed in the patients chart. I agree with the above findings, impression and plan. (Patient seen earlier today. Signature stamp does not reflect patient encounter time.). - MD Mary Tovar Anh-Otto PILLOW FILLER March 23, 2018 14:57
[2018-03-23] MEDS: D5 1/2NS w/KCl 20mEq 1,000 ML IV SCH ×3 (15:51→22:00)
--- NOTE | 2018-03-23 17:00 | Consultation ---
DATE OF CONSULTATION: 03/23/2018 INFECTIOUS DISEASES CONSULTATION CONSULTING PHYSICIAN: Yordan Johnson M.D. REFERRING PHYSICIAN: Jonas Rick M.D. REASON FOR CONSULTATION: Enteritis and leukocytosis. HISTORY OF PRESENTING ILLNESS: This is a 37-year-old gentleman with history of HIV, T-cell count unknown, who comes in with abdominal pain all along with shortness of breath. He was found to have leukocytosis and enteritis and an Infectious Diseases consultation has been obtained for antibiotics. PAST MEDICAL HISTORY: 1. History of HIV, unknown T-cell count. He states it is well over 200. 2. History of shingles. 3. History of hepatitis B. 4. History of syphilis, status post treatment. 5. History of gonorrhea, status post treatment. MEDICATIONS: At home, he is on Tivicay, Descovy, Lexapro, iron, and Flomax. Famotidine, ferrous sulfate, Truvada, Lexapro, Tivicay lactulose, Flomax, Tylenol, morphine, Zofran, Ativan, Restoril, Benadryl, Mylanta, and Zosyn. ALLERGIES: No known drug allergies. SOCIAL HISTORY: He smokes marijuana. He also smokes crystal meth. He used to drink alcohol, not any more. FAMILY HISTORY: Noncontributory. REVIEW OF SYSTEMS: RESPIRATORY: No fever, chills, or cough. He has shortness of breath. CARDIAC: No chest pain. No palpitations. No dizziness. No syncope. GASTROINTESTINAL: No nausea. No vomiting. He does have abdominal pain. No diarrhea. PHYSICAL EXAMINATION: VITAL SIGNS: Temperature of 97.6, T-max of 100.9, pulse of 86, respiratory rate of 19, blood pressure 111/74, and O2 saturation of 98%. HEENT: Pupils equally reactive to light and accommodation. Mouth appears clean without thrush. NECK: Supple. No adenopathy. No JVD. CARDIOVASCULAR: Regular rate and rhythm. No murmurs. LUNGS: Clear to auscultation bilaterally. No crackles. No wheezes. ABDOMEN: Soft. He has diffuse tenderness noted. No organomegaly. EXTREMITIES: No cyanosis, no clubbing, no edema. LABORATORY AND DIAGNOSTIC DATA: White count of 19.6, hemoglobin 13.7, hematocrit 40.5, MCV 91, platelet count of 243, and neutrophils of 90%. Sodium 132, potassium 4.2, chloride 97, bicarbonate 29, BUN 13, creatinine 1.5, glucose 118, and calcium 9. Total bilirubin 1.2, direct bilirubin 0.4, AST 12, ALT 18, and alkaline phosphatase 96. LDH 166. Total protein 7.4. Albumin 2.5. Chest x-ray showing no acute process. CT abdomen and pelvis showing possible enteritis; early partial small bowel obstruction, less likely; splenomegaly noted. ASSESSMENT: 1. This is a 37-year-old gentleman with history of human immunodeficiency virus, unknown T-cell count, who comes in with abdominal pain and was found to have enteritis. He does have a history of smoking crystal meth. We would also be concerned regarding mesenteric ischemia or small bowel obstruction. 2. Leukocytosis. PLAN: 1. Continue Zosyn. 2. Continue anti-retrovirals. 3. We will order a T-cell count. 4. We will follow up the patient clinically. I would like to thank Dr. Rick for this consultation. Yordan Johnson M.D. DR: KATARINA JOB#: [id number] CC: Jonas Rick M.D.; Fax#: [phone]
--- NOTE | 2018-03-23 17:12 | Diagnostic Imaging Report ---
Indication: Abdominal pain Technique: Coronal and axial single shot fast spin-echo breath-hold, axial T2 FRFSE, 2-D thick slab MRCP, AXIAL 2-D FIESTA fat saturated, axial 3-D dual echo breath-hold, water weighted axial LAVA FLEX, revealed 3-D MRCP images were obtained of the abdomen. MIP reconstructions were generated of the bile ducts Comparison: Reference made to abdomen pelvis CT 03/22/2018 Findings: Is demonstrated on ultrasound, common bile duct is borderline dilated, measuring up to 7 mm in diameter. No intraluminal filling defects are demonstrated. No downstream obstructive lesion demonstrated. No intrahepatic biliary ductal dilatation is evident. No gallstones are evident. No gallbladder wall thickening. The liver, pancreas, adrenals are all unremarkable. The spleen is enlarged, measuring 14.7 cm long axis dimension There are small bilateral renal cysts. Small bowel loops are mildly dilated, gas and fluid filled. Impression: Mildly ectatic common bile duct. Suspect baseline for this patient, as no definite downstream obstructive lesion is demonstrated. Occult ampullary lesion nonetheless certainly remains possible and correlation with liver enzymes is recommended Splenomegaly, also previously reported Negative for gallstones Mildly dilated fluid-filled small bowel loops, also previously reported. Most likely on the basis of enteritis or ileus, but the possibility of small bowel obstruction should also be entertained. Incidental finding bilateral renal cysts
[2018-03-23] MEDS ORDERED: Magnesium Citrate Liq Btl ORAL ONE (19:30)
[2018-03-23] MEDS: Tamsulosin 0.4mg cap ORAL SCH (22:00)
[2018-03-24 04:00] VITALS: BP 118/77
[2018-03-24] MEDS: Piperacillin/Tazobactam 3.375 GM in NS 110 ML IVPB SCH ×3 (05:05→21:04)
[2018-03-24] MEDS: D5 1/2NS w/KCl 20mEq 1,000 ML IV SCH ×2 (05:12→14:58)
[2018-03-24 07:33] LABS: HEMATOCRIT 40.3 % (42.0-52.0); HEMOGLOBIN 13.7 G/DL (14.2-18.0); MEAN CORPUSCULAR VOLUME 90 FL (80-99); PLATELET COUNT 276 K/UL (150-450); RED BLOOD COUNT 4.46 M/UL (4.70-6.10); RED CELL DISTRIBUTION WIDTH 11.2 % (11.6-14.8); WHITE BLOOD COUNT 15.7 K/UL (4.8-10.8)
[2018-03-24 07:52] LABS: ALANINE AMINOTRANSFERASE 15 U/L (12-78); ALBUMIN 2.3 G/DL (3.4-5.0); ALBUMIN/GLOBULIN RATIO 0.4 (1.0-2.7); ALKALINE PHOSPHATASE 96 U/L (46-116); ANION GAP 10 mmol/L (5-15); ASPARTATE AMINO TRANSFERASE 11 U/L (15-37); BILIRUBIN,TOTAL 0.8 MG/DL (0.2-1.0); BLOOD UREA NITROGEN 14 mg/dL (7-18); CALCIUM 8.7 MG/DL (8.5-10.1); CARBON DIOXIDE 25 MMOL/L (21-32); CHLORIDE 97 MMOL/L (98-107); CREATININE 1.1 MG/DL (0.55-1.30); POTASSIUM 4.4 MMOL/L (3.5-5.1); SODIUM 132 MMOL/L (136-145)
[2018-03-24 08:00] VITALS: BP 134/81
--- NOTE | 2018-03-24 08:12 | Pulmonology Progress Note ---
Assessment/Plan Assessment/Plan 1. Leukocytosis. Improved. 2. History of chronic abdominal pain. 3. Human immunodeficiency virus positivity. DISCUSSION: Admitted to the hospital. The patient had been seen by Surgery and has been started on abx and other pain medications. 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 Await ID follow up Subjective Interval Events: WBC beter Constitutional: Reports: no symptoms HEENT: Repors: no symptoms Respiratory: Reports: no symptoms Cardiovascular: Reports: no symptoms Genitourinary: Reports: no symptoms Allergies: Coded Allergies: No Known Allergies (Unverified , 11/23/14) Objective Last 24 Hour Vital Signs Date Time Temp Pulse Resp B/P (MAP) Pulse Ox O2 Delivery O2 Flow Rate FiO2 03/24/18 04:00 98.1 97 18 118/77 97 98.1 03/23/18 23:45 98.3 98 18 115/77 96 98.3 03/23/18 20:00 98.6 97 19 121/73 95 98.6 03/23/18 17:49 98.0 03/23/18 17:10 98.0 03/23/18 16:00 98.0 106 19 127/83 98 Room Air 98.0 03/23/18 13:58 97.6 03/23/18 12:00 99.9 101 19 119/71 98 Room Air 99.9 03/23/18 11:13 97.6 Intake and Output 03/23/18 03/24/18 19:00 07:00 Intake Total 575 ml 1630 ml Balance 575 ml 1630 ml Intake Oral 450 ml 380 ml IV Total 125 ml 1250 ml # Voids 3 3 # Bowel Movements 1 General Appearance: no acute distress HEENT: normocephalic Respiratory/Chest: chest wall non-tender, lungs clear Cardiovascular: normal peripheral pulses, normal rate Abdomen: normal bowel sounds Laboratory Tests 03/23/18 13:05: White Blood Count [Pending], Lymphocytes [Pending], Percent CD3 Cells [Pending] , Absolute CD3 Count [Pending], Percent CD4 Cells [Pending], Absolute CD4 Count [Pending], T-Lymphocyte CD4/CD8 Ratio [Pending], Percent CD8 Cells [Pending], Absolute CD8 Count [Pending] 03/24/18 07:00: White Blood Count 15.7H, Red Blood Count 4.46L, Hemoglobin 13.7L, Hematocrit 40.3L, Mean Corpuscular Volume 90, Mean Corpuscular Hemoglobin 30.6, Mean Corpuscular Hemoglobin Concent 33.9, Red Cell Distribution Width 11.2L, Platelet Count 276, Mean Platelet Volume 5.2L, Neutrophils (%) (Auto) , Lymphocytes (%) (Auto) , Monocytes (%) (Auto) , Eosinophils (%) (Auto) , Basophils (%) (Auto) , Neutrophils % (Manual) [Pending], Lymphocytes % (Manual) [Pending], Platelet Estimate [Pending], Platelet Morphology [Pending], Sodium Level 132L, Potassium Level 4.4, Chloride Level 97L, Carbon Dioxide Level 25, Anion Gap 10, Blood Urea Nitrogen 14, Creatinine 1.1, Estimat Glomerular Filtration Rate > 60, Glucose Level 167H, Calcium Level 8.7, Total Bilirubin 0.8 , Aspartate Amino Transf (AST/SGOT) 11L, Alanine Aminotransferase (ALT/SGPT) 15 , Alkaline Phosphatase 96, Total Protein 7.6, Albumin 2.3L, Globulin 5.3, Albumin/Globulin Ratio 0.4L, Hepatitis A IgM Antibody [Pending], Hepatitis B Surface Antigen [Pending], Hepatitis B Core IgM Antibody [Pending], Hepatitis C Antibody [Pending] Current Medications Medications (Trade) Dose Ordered Sig/Eduardo Route PRN Reason Start Time Stop Time Status Last Admin Dose Admin Acetaminophen (Tylenol) 650 mg Q4H PRN ORAL Fever 03/22/18 22:00 04/21/18 21:59 03/23/18 03:56 Acetaminophen (Tylenol) 650 mg Q6H PRN ORAL Mild Pain/Temp > 100.5 03/22/18 22:30 04/21/18 22:29 Al Hydroxide/Mg Hydroxide (Mylanta II) 30 ml Q6H PRN ORAL GI UPSET 03/22/18 22:00 04/21/18 21:59 Dextrose (Dextrose 50%) 25 ml STAT PRN IV Hypoglycemia 03/22/18 22:30 04/21/18 22:29 Dextrose (Dextrose 50%) 50 ml STAT PRN IV Hypoglycemia 03/22/18 22:00 04/21/18 21:59 Dextrose (Dextrose 50%) 50 ml STAT PRN IV Hypoglycemia 03/22/18 22:30 04/21/18 22:29 Dextrose/ Electrolytes 1,000 ml @ 125 mls/hr Q8H IV 03/22/18 22:58 04/21/18 22:57 03/24/18 05:12 Diphenhydramine HCl (Benadryl) 25 mg Q6H PRN ORAL Itching/Pruritis 03/22/18 22:00 04/21/18 21:59 Dolutegravir Sodium (Tivicay) 50 mg DAILY ORAL 03/23/18 09:00 04/22/18 08:59 UNV Emtricitabine/ Tenofovir (Truvada 200/ 300mg) 1 tab DAILY ORAL 03/23/18 09:00 04/22/18 08:59 UNV Escitalopram Oxalate (Lexapro) 10 mg DAILY ORAL 03/23/18 09:00 04/22/18 08:59 03/23/18 08:57 Famotidine (Pepcid I.v.) 20 mg Q12HR IVP 03/23/18 09:00 04/22/18 08:59 03/23/18 22:00 Ferrous Sulfate (Feosol) 325 mg DAILY ORAL 03/23/18 09:00 04/22/18 08:59 03/23/18 08:57 Lactulose (Cephulac) 30 gm THREE TIMES A DAY ORAL 03/22/18 23:00 04/21/18 22:59 03/23/18 17:09 Lorazepam (Ativan 2mg/ml 1ml) 0.5 mg Q4H PRN IV For Anxiety 03/22/18 22:00 03/29/18 21:59 Morphine Sulfate (Morphine Sulfate) 4 mg EVERY 3 HOURS PRN IVP Severe Pain (Pain Scale 7-10) 03/22/18 22:00 03/29/18 21:59 03/23/18 22:00 Ondansetron HCl (Zofran) 4 mg Q6H PRN IVP Nausea & Vomiting 03/22/18 22:00 04/21/18 21:59 03/23/18 17:09 Piperacillin Sod/ Tazobactam Sod 3.375 gm/Sodium Chloride 110 ml @ 27.5 mls/hr EVERY 8 HOURS IVPB 03/22/18 22:00 03/27/18 21:59 03/24/18 05:05 Tamsulosin HCl (Flomax) 0.4 mg BEDTIME ORAL 03/22/18 22:51 04/21/18 22:50 03/23/18 22:00 Temazepam (Restoril) 15 mg HSPRN PRN ORAL Insomnia 03/22/18 22:00 03/29/18 21:59 Jonas Rick MD March 24, 2018 08:12
[2018-03-24] MEDS: Lactulose 20gm/30ml UDC ORAL SCH ×3 (08:39→17:19)
[2018-03-24] MEDS: Morphine Sulfate 4mg/ml Inj IVP PRN ×2 (08:41→14:00)
--- NOTE | 2018-03-24 11:23 | GI Progress Note ---
Assessment/Plan Problems: (1) Amphetamine abuse ICD Codes: F15.10 - Other stimulant abuse, uncomplicated SNOMED: 54188002 (2) Drug use ICD Codes: F19.90 - Other psychoactive substance use, unspecified, uncomplicated SNOMED: 241409500 (3) HIV (human immunodeficiency virus infection) ICD Codes: B20 - Human immunodeficiency virus [HIV] disease SNOMED: 55597896 (4) Abdominal pain ICD Codes: R10.9 - Unspecified abdominal pain SNOMED: 57931740 Qualifiers: Qualified Codes: R10.84 - Generalized abdominal pain (5) Constipation ICD Codes: K59.00 - Constipation, unspecified SNOMED: 37348177 (6) Hepatitis B ICD Codes: B19.10 - Unspecified viral hepatitis B without hepatic coma SNOMED: 66029681 (7) Enteritis ICD Codes: K52.9 - Noninfective gastroenteritis and colitis, unspecified SNOMED: 62475089 Status: stable Status Narrative Discussed with Dr. Jo. Assessment/Plan MRI reviewedm, see full report. >> Mildly ectatic common bile duct. Mildly dilated fluid-filled small bowel loops, most likely enteritis or ileus. nausea without vomiting no diarrhea history of hepatitis B rectal prolapse utox >> positive for amphetamines okay for DC per GI standpoint symptomatic treatment adv diet as tolerated pain mgmt ppi prn transfusions abx trend LFTs fu labs, hepatitis panel Subjective Subjective abdominal pain better constipated wants to be discharged Objective Last 24 Hour Vital Signs Date Time Temp Pulse Resp B/P (MAP) Pulse Ox O2 Delivery O2 Flow Rate FiO2 03/24/18 08:00 97.7 74 15 134/81 94 97.7 03/24/18 04:00 98.1 97 18 118/77 97 98.1 03/23/18 23:45 98.3 98 18 115/77 96 98.3 03/23/18 20:00 98.6 97 19 121/73 95 98.6 03/23/18 17:49 98.0 03/23/18 17:10 98.0 03/23/18 16:00 98.0 106 19 127/83 98 Room Air 98.0 03/23/18 13:58 97.6 03/23/18 12:00 99.9 101 19 119/71 98 Room Air 99.9 Intake and Output 03/23/18 03/24/18 19:00 07:00 Intake Total 575 ml 1630 ml Balance 575 ml 1630 ml Intake Oral 450 ml 380 ml IV Total 125 ml 1250 ml # Voids 3 3 # Bowel Movements 1 Laboratory Tests Test 03/23/18 13:05 03/24/18 05:15 03/24/18 07:00 White Blood Count Pending 15.7 K/UL (4.8-10.8) H Lymphocytes Pending Percent CD3 Cells Pending Absolute CD3 Count Pending Percent CD4 Cells Pending Absolute CD4 Count Pending T-Lymphocyte CD4/CD8 Ratio Pending Percent CD8 Cells Pending Absolute CD8 Count Pending Urine Opiates Screen Positive (NEGATIVE) H Urine Barbiturates Screen Negative (NEGATIVE) Phencyclidine (PCP) Screen Negative (NEGATIVE) Urine Amphetamines Screen Positive (NEGATIVE) H Urine Benzodiazepines Screen Negative (NEGATIVE) Urine Cocaine Screen Negative (NEGATIVE) Urine Marijuana (THC) Screen Negative (NEGATIVE) Red Blood Count 4.46 M/UL (4.70-6.10) L Hemoglobin 13.7 G/DL (14.2-18.0) L Hematocrit 40.3 % (42.0-52.0) L Mean Corpuscular Volume 90 FL (80-99) Mean Corpuscular Hemoglobin 30.6 PG (27.0-31.0) Mean Corpuscular Hemoglobin Concent 33.9 G/DL (32.0-36.0) Red Cell Distribution Width 11.2 % (11.6-14.8) L Platelet Count 276 K/UL (150-450) Mean Platelet Volume 5.2 FL (6.5-10.1) L Neutrophils (%) (Auto) % (45.0-75.0) Lymphocytes (%) (Auto) % (20.0-45.0) Monocytes (%) (Auto) % (1.0-10.0) Eosinophils (%) (Auto) % (0.0-3.0) Basophils (%) (Auto) % (0.0-2.0) Differential Total Cells Counted 100 Neutrophils % (Manual) 91 % (45-75) H Lymphocytes % (Manual) 4 % (20-45) L Monocytes % (Manual) 5 % (1-10) Eosinophils % (Manual) 0 % (0-3) Basophils % (Manual) 0 % (0-2) Band Neutrophils 0 % (0-8) Platelet Estimate Adequate Platelet Morphology Normal Red Blood Cell Morphology Normal Sodium Level 132 MMOL/L (136-145) L Potassium Level 4.4 MMOL/L (3.5-5.1) Chloride Level 97 MMOL/L (98-107) L Carbon Dioxide Level 25 MMOL/L (21-32) Anion Gap 10 mmol/L (5-15) Blood Urea Nitrogen 14 mg/dL (7-18) Creatinine 1.1 MG/DL (0.55-1.30) Estimat Glomerular Filtration Rate > 60 mL/min (>60) Glucose Level 167 MG/DL (74-106) H Calcium Level 8.7 MG/DL (8.5-10.1) Total Bilirubin 0.8 MG/DL (0.2-1.0) Aspartate Amino Transf (AST/SGOT) 11 U/L (15-37) L Alanine Aminotransferase (ALT/SGPT) 15 U/L (12-78) Alkaline Phosphatase 96 U/L (46-116) Total Protein 7.6 G/DL (6.4-8.2) Albumin 2.3 G/DL (3.4-5.0) L Globulin 5.3 g/dL Albumin/Globulin Ratio 0.4 (1.0-2.7) L Hepatitis A IgM Antibody Pending Hepatitis B Surface Antigen Pending Hepatitis B Core IgM Antibody Pending Hepatitis C Antibody Pending Height (Feet): 6 Height (Inches): 3.00 Weight (Pounds): 220 General Appearance: WD/WN, no apparent distress, alert Cardiovascular: normal rate Respiratory/Chest: normal breath sounds, no respiratory distress Abdominal Exam: normal bowel sounds, non tender, soft Extremities: normal range of motion, non-tender Staci Hernandez NP March 24, 2018 11:23
[2018-03-24 12:00] VITALS: BP 120/70
[2018-03-24] MEDS ORDERED: Dolutegravir Sodium 50mg tab ORAL SCH (12:00)
--- NOTE | 2018-03-24 13:22 | Infectious Diseases Prog Note ---
Assessment/Plan Assessment/Plan A: Enteritis HIV Splenomegaly Nicotine dependence Amphetamine abuse P; Continue Zosyn & ART will f/u CD4 & cultures Subjective ROS Limited/Unobtainable: No Constitutional: Reports: no symptoms Respiratory: Reports: no symptoms Gastrointestinal/Abdominal: Reports: other - mild epigastric pain Genitourinary: Reports: no symptoms Musculoskeletal: Reports: no symptoms Allergies: Coded Allergies: No Known Allergies (Unverified , 11/23/14) Objective Vital Signs Last 24 Hour Vital Signs Date Time Temp Pulse Resp B/P (MAP) Pulse Ox O2 Delivery O2 Flow Rate FiO2 03/24/18 12:00 98.0 80 20 120/70 98 98.0 03/24/18 08:00 97.7 74 15 134/81 94 97.7 03/24/18 04:00 98.1 97 18 118/77 97 98.1 03/23/18 23:45 98.3 98 18 115/77 96 98.3 03/23/18 20:00 98.6 97 19 121/73 95 98.6 03/23/18 17:49 98.0 03/23/18 17:10 98.0 03/23/18 16:00 98.0 106 19 127/83 98 Room Air 98.0 03/23/18 13:58 97.6 Height (Feet): 6 Height (Inches): 3.00 Weight (Pounds): 220 General Appearance: no acute distress Respiratory/Chest: lungs clear Cardiovascular: normal rate Abdomen: soft, non tender Extremities: no edema Neurologic/Psychiatric: alert, oriented x 3, responsive Laboratory Tests Test 03/24/18 05:15 03/24/18 07:00 Urine Opiates Screen Positive (NEGATIVE) H Urine Barbiturates Screen Negative (NEGATIVE) Phencyclidine (PCP) Screen Negative (NEGATIVE) Urine Amphetamines Screen Positive (NEGATIVE) H Urine Benzodiazepines Screen Negative (NEGATIVE) Urine Cocaine Screen Negative (NEGATIVE) Urine Marijuana (THC) Screen Negative (NEGATIVE) White Blood Count 15.7 K/UL (4.8-10.8) H Red Blood Count 4.46 M/UL (4.70-6.10) L Hemoglobin 13.7 G/DL (14.2-18.0) L Hematocrit 40.3 % (42.0-52.0) L Mean Corpuscular Volume 90 FL (80-99) Mean Corpuscular Hemoglobin 30.6 PG (27.0-31.0) Mean Corpuscular Hemoglobin Concent 33.9 G/DL (32.0-36.0) Red Cell Distribution Width 11.2 % (11.6-14.8) L Platelet Count 276 K/UL (150-450) Mean Platelet Volume 5.2 FL (6.5-10.1) L Neutrophils (%) (Auto) % (45.0-75.0) Lymphocytes (%) (Auto) % (20.0-45.0) Monocytes (%) (Auto) % (1.0-10.0) Eosinophils (%) (Auto) % (0.0-3.0) Basophils (%) (Auto) % (0.0-2.0) Differential Total Cells Counted 100 Neutrophils % (Manual) 91 % (45-75) H Lymphocytes % (Manual) 4 % (20-45) L Monocytes % (Manual) 5 % (1-10) Eosinophils % (Manual) 0 % (0-3) Basophils % (Manual) 0 % (0-2) Band Neutrophils 0 % (0-8) Platelet Estimate Adequate Platelet Morphology Normal Red Blood Cell Morphology Normal Sodium Level 132 MMOL/L (136-145) L Potassium Level 4.4 MMOL/L (3.5-5.1) Chloride Level 97 MMOL/L (98-107) L Carbon Dioxide Level 25 MMOL/L (21-32) Anion Gap 10 mmol/L (5-15) Blood Urea Nitrogen 14 mg/dL (7-18) Creatinine 1.1 MG/DL (0.55-1.30) Estimat Glomerular Filtration Rate > 60 mL/min (>60) Glucose Level 167 MG/DL (74-106) H Calcium Level 8.7 MG/DL (8.5-10.1) Total Bilirubin 0.8 MG/DL (0.2-1.0) Aspartate Amino Transf (AST/SGOT) 11 U/L (15-37) L Alanine Aminotransferase (ALT/SGPT) 15 U/L (12-78) Alkaline Phosphatase 96 U/L (46-116) Total Protein 7.6 G/DL (6.4-8.2) Albumin 2.3 G/DL (3.4-5.0) L Globulin 5.3 g/dL Albumin/Globulin Ratio 0.4 (1.0-2.7) L Hepatitis A IgM Antibody Pending Hepatitis B Surface Antigen Pending Hepatitis B Core IgM Antibody Pending Hepatitis C Antibody Pending Current Medications Medications (Trade) Dose Ordered Sig/Eduardo Route PRN Reason Start Time Stop Time Status Last Admin Dose Admin Acetaminophen (Tylenol) 650 mg Q4H PRN ORAL Fever 03/22/18 22:00 04/21/18 21:59 03/23/18 03:56 Acetaminophen (Tylenol) 650 mg Q6H PRN ORAL Mild Pain/Temp > 100.5 03/22/18 22:30 04/21/18 22:29 Al Hydroxide/Mg Hydroxide (Mylanta II) 30 ml Q6H PRN ORAL GI UPSET 03/22/18 22:00 04/21/18 21:59 Dextrose (Dextrose 50%) 25 ml STAT PRN IV Hypoglycemia 03/22/18 22:30 04/21/18 22:29 Dextrose (Dextrose 50%) 50 ml STAT PRN IV Hypoglycemia 03/22/18 22:00 04/21/18 21:59 Dextrose (Dextrose 50%) 50 ml STAT PRN IV Hypoglycemia 03/22/18 22:30 04/21/18 22:29 Dextrose/ Electrolytes 1,000 ml @ 125 mls/hr Q8H IV 03/22/18 22:58 04/21/18 22:57 03/24/18 05:12 Diphenhydramine HCl (Benadryl) 25 mg Q6H PRN ORAL Itching/Pruritis 03/22/18 22:00 04/21/18 21:59 Dolutegravir Sodium (Tivicay) 50 mg DAILY ORAL 03/25/18 09:00 04/24/18 08:59 Emtricitabine/ Tenofovir (Truvada 200/ 300mg) 1 tab DAILY ORAL 03/25/18 09:00 04/24/18 08:59 Escitalopram Oxalate (Lexapro) 10 mg DAILY ORAL 03/23/18 09:00 04/22/18 08:59 03/24/18 08:38 Famotidine (Pepcid I.v.) 20 mg Q12HR IVP 03/23/18 09:00 04/22/18 08:59 03/24/18 08:38 Ferrous Sulfate (Feosol) 325 mg DAILY ORAL 03/23/18 09:00 04/22/18 08:59 03/24/18 08:39 Lactulose (Cephulac) 30 gm THREE TIMES A DAY ORAL 03/22/18 23:00 04/21/18 22:59 03/24/18 08:39 Lorazepam (Ativan 2mg/ml 1ml) 0.5 mg Q4H PRN IV For Anxiety 03/22/18 22:00 03/29/18 21:59 Morphine Sulfate (Morphine Sulfate) 4 mg EVERY 3 HOURS PRN IVP Severe Pain (Pain Scale 7-10) 03/22/18 22:00 03/29/18 21:59 03/24/18 08:41 Ondansetron HCl (Zofran) 4 mg Q6H PRN IVP Nausea & Vomiting 03/22/18 22:00 04/21/18 21:59 03/24/18 08:38 Piperacillin Sod/ Tazobactam Sod 3.375 gm/Sodium Chloride 110 ml @ 27.5 mls/hr EVERY 8 HOURS IVPB 03/22/18 22:00 03/27/18 21:59 03/24/18 05:05 Tamsulosin HCl (Flomax) 0.4 mg BEDTIME ORAL 03/22/18 22:51 04/21/18 22:50 03/23/18 22:00 Temazepam (Restoril) 15 mg HSPRN PRN ORAL Insomnia 03/22/18 22:00 03/29/18 21:59 FIDEL DELAROSA March 24, 2018 13:22
[2018-03-24 16:00] VITALS: BP 105/80
--- NOTE | 2018-03-24 18:14 | General Surgery Progress Note ---
General Surgery-Progress Note Subjective Symptoms: improved, tolerating diet, passing flatus, BM Additional Comments pain much improved. exam improved. Objective Last 24 Hour Vital Signs Date Time Temp Pulse Resp B/P (MAP) Pulse Ox O2 Delivery O2 Flow Rate FiO2 03/24/18 16:00 98.0 89 19 105/80 99 98.0 03/24/18 14:30 98.0 03/24/18 14:00 98.0 03/24/18 12:00 98.0 80 20 120/70 98 98.0 03/24/18 08:00 97.7 74 15 134/81 94 97.7 03/24/18 04:00 98.1 97 18 118/77 97 98.1 03/23/18 23:45 98.3 98 18 115/77 96 98.3 03/23/18 20:00 98.6 97 19 121/73 95 98.6 I&O Intake and Output 03/23/18 03/24/18 19:00 07:00 Intake Total 575 ml 1630 ml Balance 575 ml 1630 ml Intake Oral 450 ml 380 ml IV Total 125 ml 1250 ml # Voids 3 3 # Bowel Movements 1 Drains: none Cardiovascular: RSR Respiratory: clear Abdomen: soft, flat, tenderness, present bowel sounds Extremities: no tenderness, no cyanosis Laboratory Tests Test 03/24/18 05:15 03/24/18 07:00 Urine Opiates Screen Positive (NEGATIVE) H Urine Barbiturates Screen Negative (NEGATIVE) Phencyclidine (PCP) Screen Negative (NEGATIVE) Urine Amphetamines Screen Positive (NEGATIVE) H Urine Benzodiazepines Screen Negative (NEGATIVE) Urine Cocaine Screen Negative (NEGATIVE) Urine Marijuana (THC) Screen Negative (NEGATIVE) White Blood Count 15.7 K/UL (4.8-10.8) H Red Blood Count 4.46 M/UL (4.70-6.10) L Hemoglobin 13.7 G/DL (14.2-18.0) L Hematocrit 40.3 % (42.0-52.0) L Mean Corpuscular Volume 90 FL (80-99) Mean Corpuscular Hemoglobin 30.6 PG (27.0-31.0) Mean Corpuscular Hemoglobin Concent 33.9 G/DL (32.0-36.0) Red Cell Distribution Width 11.2 % (11.6-14.8) L Platelet Count 276 K/UL (150-450) Mean Platelet Volume 5.2 FL (6.5-10.1) L Neutrophils (%) (Auto) % (45.0-75.0) Lymphocytes (%) (Auto) % (20.0-45.0) Monocytes (%) (Auto) % (1.0-10.0) Eosinophils (%) (Auto) % (0.0-3.0) Basophils (%) (Auto) % (0.0-2.0) Differential Total Cells Counted 100 Neutrophils % (Manual) 91 % (45-75) H Lymphocytes % (Manual) 4 % (20-45) L Monocytes % (Manual) 5 % (1-10) Eosinophils % (Manual) 0 % (0-3) Basophils % (Manual) 0 % (0-2) Band Neutrophils 0 % (0-8) Platelet Estimate Adequate Platelet Morphology Normal Red Blood Cell Morphology Normal Sodium Level 132 MMOL/L (136-145) L Potassium Level 4.4 MMOL/L (3.5-5.1) Chloride Level 97 MMOL/L (98-107) L Carbon Dioxide Level 25 MMOL/L (21-32) Anion Gap 10 mmol/L (5-15) Blood Urea Nitrogen 14 mg/dL (7-18) Creatinine 1.1 MG/DL (0.55-1.30) Estimat Glomerular Filtration Rate > 60 mL/min (>60) Glucose Level 167 MG/DL (74-106) H Calcium Level 8.7 MG/DL (8.5-10.1) Total Bilirubin 0.8 MG/DL (0.2-1.0) Aspartate Amino Transf (AST/SGOT) 11 U/L (15-37) L Alanine Aminotransferase (ALT/SGPT) 15 U/L (12-78) Alkaline Phosphatase 96 U/L (46-116) Total Protein 7.6 G/DL (6.4-8.2) Albumin 2.3 G/DL (3.4-5.0) L Globulin 5.3 g/dL Albumin/Globulin Ratio 0.4 (1.0-2.7) L Hepatitis A IgM Antibody Pending Hepatitis B Surface Antigen Pending Hepatitis B Core IgM Antibody Pending Hepatitis C Antibody Pending Plan Problems: (1) Abdominal pain Assessment & Plan: 37M with complicated medical history and chronic pain presents with usual abdominal pain but has fevers, tachycardia, leukocytosis. Exam not very reliable or consistent. CT reviewed. possible enteritis? no abscess, perforation, or acute surgical indication noted. ultrasound with sludge but no stones. 7mm cbd MRCP okay pain improved leukocytosis improved low grade fevers resolved. no acute surgical intervention currently okay for diet Abx as per ID will follow with serial exams. thank you for this consultation. Fritz Paniagua March 24, 2018 18:14
[2018-03-24 20:00] VITALS: BP 124/85
[2018-03-24] MEDS: Tamsulosin 0.4mg cap ORAL SCH (21:04)
[2018-03-25] MEDS: Piperacillin/Tazobactam 3.375 GM in NS 110 ML IVPB SCH (06:15)
[2018-03-25 07:41] LABS: BASOPHILS % (AUTO) 0.3 % (0.0-2.0); EOSINOPHILS % (AUTO) 0.3 % (0.0-3.0); HEMATOCRIT 39.4 % (42.0-52.0); HEMOGLOBIN 13.1 G/DL (14.2-18.0); LYMPHOCYTES % (AUTO) 9.1 % (20.0-45.0); MEAN CORPUSCULAR VOLUME 91 FL (80-99); MONOCYTES % (AUTO) 5.6 % (1.0-10.0); NEUTROPHILS % (AUTO) 84.7 % (45.0-75.0); PLATELET COUNT 365 K/UL (150-450); RED BLOOD COUNT 4.33 M/UL (4.70-6.10); RED CELL DISTRIBUTION WIDTH 11.7 % (11.6-14.8); WHITE BLOOD COUNT 11.9 K/UL (4.8-10.8)
[2018-03-25 08:00] VITALS: BP 103/68
[2018-03-25 08:17] LABS: ALANINE AMINOTRANSFERASE 15 U/L (12-78); ALBUMIN 2.2 G/DL (3.4-5.0); ALBUMIN/GLOBULIN RATIO 0.4 (1.0-2.7); ALKALINE PHOSPHATASE 82 U/L (46-116); ANION GAP 8 mmol/L (5-15); ASPARTATE AMINO TRANSFERASE 10 U/L (15-37); BILIRUBIN,TOTAL 0.4 MG/DL (0.2-1.0); BLOOD UREA NITROGEN 12 mg/dL (7-18); CALCIUM 8.7 MG/DL (8.5-10.1); CARBON DIOXIDE 27 MMOL/L (21-32); CHLORIDE 101 MMOL/L (98-107); POTASSIUM 4.2 MMOL/L (3.5-5.1); SODIUM 136 MMOL/L (136-145)
[2018-03-25] MEDS: Lactulose 20gm/30ml UDC ORAL SCH (08:36)
[2018-03-25] MEDS: Morphine Sulfate 4mg/ml Inj IVP PRN (08:37)
[2018-03-25] MEDS ORDERED: Dolutegravir Sodium 50mg tab ORAL SCH (09:00)
--- NOTE | 2018-03-25 09:29 | Pulmonology Progress Note ---
Assessment/Plan Assessment/Plan 1. Leukocytosis. Improved. 2. History of chronic abdominal pain. 3. Human immunodeficiency virus positivity. DISCUSSION: Continue on abx and other pain medications. Await ID follow up DC planning for home Subjective Interval Events: Better; WBC decreased Constitutional: Reports: no symptoms HEENT: Repors: no symptoms Respiratory: Reports: no symptoms Cardiovascular: Reports: no symptoms Allergies: Coded Allergies: No Known Allergies (Unverified , 11/23/14) Objective Last 24 Hour Vital Signs Date Time Temp Pulse Resp B/P (MAP) Pulse Ox O2 Delivery O2 Flow Rate FiO2 03/25/18 08:37 97.8 03/25/18 08:00 97.8 82 20 103/68 99 97.8 03/24/18 20:00 98.6 91 21 124/85 96 98.6 03/24/18 16:00 98.0 89 19 105/80 99 98.0 03/24/18 14:30 98.0 03/24/18 14:00 98.0 03/24/18 12:00 98.0 80 20 120/70 98 98.0 Intake and Output 03/24/18 03/25/18 19:00 07:00 Intake Total 500 ml Balance 500 ml Intake Oral 500 ml # Voids 2 4 # Bowel Movements 1 1 General Appearance: no acute distress HEENT: normocephalic Respiratory/Chest: chest wall non-tender, lungs clear Cardiovascular: normal peripheral pulses, normal rate Abdomen: normal bowel sounds Laboratory Tests 03/25/18 06:35: White Blood Count 11.9H, Red Blood Count 4.33L, Hemoglobin 13.1L, Hematocrit 39.4L, Mean Corpuscular Volume 91, Mean Corpuscular Hemoglobin 30.2, Mean Corpuscular Hemoglobin Concent 33.2, Red Cell Distribution Width 11.7, Platelet Count 365, Mean Platelet Volume 5.0L, Neutrophils (%) (Auto) 84.7H, Lymphocytes (%) (Auto) 9.1L, Monocytes (%) (Auto) 5.6, Eosinophils (%) (Auto) 0.3, Basophils (%) (Auto) 0.3, Sodium Level 136, Potassium Level 4.2, Chloride Level 101, Carbon Dioxide Level 27, Anion Gap 8, Blood Urea Nitrogen 12, Creatinine 1.0, Estimat Glomerular Filtration Rate > 60, Glucose Level 115H, Calcium Level 8.7, Total Bilirubin 0.4, Aspartate Amino Transf (AST/SGOT) 10L, Alanine Aminotransferase (ALT/SGPT) 15, Alkaline Phosphatase 82, Total Protein 7.5, Albumin 2.2L, Globulin 5.3, Albumin/Globulin Ratio 0.4L Current Medications Medications (Trade) Dose Ordered Sig/Eduardo Route PRN Reason Start Time Stop Time Status Last Admin Dose Admin Acetaminophen (Tylenol) 650 mg Q6H PRN ORAL Mild Pain/Temp > 100.5 03/22/18 22:30 04/21/18 22:29 Al Hydroxide/Mg Hydroxide (Mylanta II) 30 ml Q6H PRN ORAL GI UPSET 03/22/18 22:00 04/21/18 21:59 Dextrose (Dextrose 50%) 50 ml STAT PRN IV Hypoglycemia 03/22/18 22:00 04/21/18 21:59 Diphenhydramine HCl (Benadryl) 25 mg Q6H PRN ORAL Itching/Pruritis 03/22/18 22:00 04/21/18 21:59 Dolutegravir Sodium (Tivicay) 50 mg DAILY ORAL 03/25/18 09:00 04/24/18 08:59 03/25/18 08:36 Emtricitabine/ Tenofovir (Truvada 200/ 300mg) 1 tab DAILY ORAL 03/25/18 09:00 04/24/18 08:59 03/25/18 08:36 Escitalopram Oxalate (Lexapro) 10 mg DAILY ORAL 03/23/18 09:00 04/22/18 08:59 03/25/18 08:36 Famotidine (Pepcid I.v.) 20 mg Q12HR IVP 03/23/18 09:00 04/22/18 08:59 03/24/18 21:04 Ferrous Sulfate (Feosol) 325 mg DAILY ORAL 03/23/18 09:00 04/22/18 08:59 03/25/18 08:36 Lactulose (Cephulac) 30 gm THREE TIMES A DAY ORAL 03/22/18 23:00 04/21/18 22:59 03/25/18 08:36 Lorazepam (Ativan 2mg/ml 1ml) 0.5 mg Q4H PRN IV For Anxiety 03/22/18 22:00 03/29/18 21:59 03/24/18 18:27 Morphine Sulfate (Morphine Sulfate) 4 mg EVERY 3 HOURS PRN IVP Severe Pain (Pain Scale 7-10) 03/22/18 22:00 03/29/18 21:59 03/25/18 08:37 Ondansetron HCl (Zofran) 4 mg Q6H PRN IVP Nausea & Vomiting 03/22/18 22:00 04/21/18 21:59 03/25/18 03:26 Piperacillin Sod/ Tazobactam Sod 3.375 gm/Sodium Chloride 110 ml @ 27.5 mls/hr EVERY 8 HOURS IVPB 03/22/18 22:00 03/27/18 21:59 03/25/18 06:15 Tamsulosin HCl (Flomax) 0.4 mg BEDTIME ORAL 03/22/18 22:51 04/21/18 22:50 03/24/18 21:04 Temazepam (Restoril) 15 mg HSPRN PRN ORAL Insomnia 03/22/18 22:00 03/29/18 21:59 Jonas Rick MD March 25, 2018 09:29
[2018-03-25] MEDS ORDERED: LEVAQUIN500 MG ORAL (10:32)
[2018-03-25] MEDS ORDERED: METRONIDAZOLE500 MG ORAL (10:33)
--- NOTE | 2018-03-25 11:52 | GI Progress Note ---
Assessment/Plan Problems: (1) Amphetamine abuse ICD Codes: F15.10 - Other stimulant abuse, uncomplicated SNOMED: 47179487 (2) Drug use ICD Codes: F19.90 - Other psychoactive substance use, unspecified, uncomplicated SNOMED: 716710630 (3) HIV (human immunodeficiency virus infection) ICD Codes: B20 - Human immunodeficiency virus [HIV] disease SNOMED: 14633572 (4) Abdominal pain ICD Codes: R10.9 - Unspecified abdominal pain SNOMED: 35259649 Qualifiers: Qualified Codes: R10.84 - Generalized abdominal pain (5) Constipation ICD Codes: K59.00 - Constipation, unspecified SNOMED: 32173078 (6) Hepatitis B ICD Codes: B19.10 - Unspecified viral hepatitis B without hepatic coma SNOMED: 75832081 (7) Enteritis ICD Codes: K52.9 - Noninfective gastroenteritis and colitis, unspecified SNOMED: 90831653 Status: stable Status Narrative Discussed with Dr. Jo. Assessment/Plan MRI reviewedm, see full report. >> Mildly ectatic common bile duct. Mildly dilated fluid-filled small bowel loops, most likely enteritis or ileus. nausea without vomiting no diarrhea history of hepatitis B rectal prolapse utox >> positive for amphetamines okay for DC per GI standpoint symptomatic treatment adv diet as tolerated pain mgmt ppi prn transfusions abx trend LFTs fu labs, hepatitis panel Subjective Subjective abdominal pain better constipated wants to be discharged Objective Last 24 Hour Vital Signs Date Time Temp Pulse Resp B/P (MAP) Pulse Ox O2 Delivery O2 Flow Rate FiO2 03/25/18 08:00 97.8 82 20 103/68 99 97.8 03/24/18 20:00 98.6 91 21 124/85 96 98.6 03/24/18 16:00 98.0 89 19 105/80 99 98.0 03/24/18 14:30 98.0 03/24/18 14:00 98.0 03/24/18 12:00 98.0 80 20 120/70 98 98.0 Intake and Output 03/24/18 03/25/18 19:00 07:00 Intake Total 500 ml Balance 500 ml Intake Oral 500 ml # Voids 2 4 # Bowel Movements 1 1 Laboratory Tests Test 03/25/18 06:35 White Blood Count 11.9 K/UL (4.8-10.8) H Red Blood Count 4.33 M/UL (4.70-6.10) L Hemoglobin 13.1 G/DL (14.2-18.0) L Hematocrit 39.4 % (42.0-52.0) L Mean Corpuscular Volume 91 FL (80-99) Mean Corpuscular Hemoglobin 30.2 PG (27.0-31.0) Mean Corpuscular Hemoglobin Concent 33.2 G/DL (32.0-36.0) Red Cell Distribution Width 11.7 % (11.6-14.8) Platelet Count 365 K/UL (150-450) Mean Platelet Volume 5.0 FL (6.5-10.1) L Neutrophils (%) (Auto) 84.7 % (45.0-75.0) H Lymphocytes (%) (Auto) 9.1 % (20.0-45.0) L Monocytes (%) (Auto) 5.6 % (1.0-10.0) Eosinophils (%) (Auto) 0.3 % (0.0-3.0) Basophils (%) (Auto) 0.3 % (0.0-2.0) Sodium Level 136 MMOL/L (136-145) Potassium Level 4.2 MMOL/L (3.5-5.1) Chloride Level 101 MMOL/L (98-107) Carbon Dioxide Level 27 MMOL/L (21-32) Anion Gap 8 mmol/L (5-15) Blood Urea Nitrogen 12 mg/dL (7-18) Creatinine 1.0 MG/DL (0.55-1.30) Estimat Glomerular Filtration Rate > 60 mL/min (>60) Glucose Level 115 MG/DL (74-106) H Calcium Level 8.7 MG/DL (8.5-10.1) Total Bilirubin 0.4 MG/DL (0.2-1.0) Aspartate Amino Transf (AST/SGOT) 10 U/L (15-37) L Alanine Aminotransferase (ALT/SGPT) 15 U/L (12-78) Alkaline Phosphatase 82 U/L (46-116) Total Protein 7.5 G/DL (6.4-8.2) Albumin 2.2 G/DL (3.4-5.0) L Globulin 5.3 g/dL Albumin/Globulin Ratio 0.4 (1.0-2.7) L Height (Feet): 6 Height (Inches): 3.00 Weight (Pounds): 220 General Appearance: WD/WN, no apparent distress, alert Cardiovascular: normal rate Respiratory/Chest: normal breath sounds, no respiratory distress Abdominal Exam: normal bowel sounds, non tender, soft Extremities: normal range of motion, non-tender Staci Hernandez NP March 25, 2018 11:52
--- NOTE | 2018-03-26 14:22 | Discharge Summary ---
Discharge Summary Discharge Summary Discharge Summary DATE OF ADMISSION: 03/22/2018 DATE OF DISCHARGE: 03/25/2018 CONSULTANTS: Dr. Fritz Johnson BRIEF HOSPITAL COURSE: Patient is a 37-year-old male, with history of HIV and chronic abdominal pain, presented to the hospital with worsening abdominal pain. He has chronic constipation and has rectal prolapse. He had gradual onset of symptoms over the past 3 weeks which has worsened. He has increased abdominal discomfort and increased difficulty with ambulation. He had history of Guillain-Mendoza. On evaluation at ED, he was febrile, workup showed leukocytosis, WBC was 18, lactic acid was normal. He had CT of the abdomen and pelvis that showed underdistention with apparent mild thickening/fluid-filled proximal colon and small bowel loops. Evolving obstruction not excluded. Splenomegaly was noted. There was a right renal cyst and congestion of the mesenteric fat. He was started on IV antibiotics. Surgical evaluation was done. Physical examination not very reliable or consistent. Abdomen was soft and tender, however, with voluntary guarding at times. CT of the abdomen was reviewed. There was no abscess, no perforation no acute surgical indication noted. He was kept on nothing by mouth with IV fluids. Abdominal ultrasound showed gallbladder sludge. Negative for gallstones. There was mildly dilated common bile duct. MRI of the abdomen showed mildly ectatic common bile duct, no definite obstruction. Mildly dilated fluid-filled small bowel loops most likely enteritis or ileus. There was no vomiting, no diarrhea. Diet was advanced. Hepatitis panel still pending. Toxicology screen positive for amphetamines and opiates. He had leukocytosis with history of HIV with unknown T-cell count. He was continued on Zosyn and antiretrovirals. Absolute CD4 count was 315. He was continued on Truvada 200/300 mg and Tivicay 50 mg daily. He was tolerating diet well. Pain improved. Leukocytosis improved. Low-grade fevers resolved. He was eventually discharged home. FINAL DIAGNOSES: Enteritis HIV Chronic abdominal pain Constipation Amphetamine abuse DISPOSITION: Patient was discharged home. MY DISCHARGE MEDS: Refer to Medication Reconciliation. To continue Levaquin 500 mg po daily for 3 more days. MY DISCHARGE DISPOSITION: Follow-up with PMD in a week. I have been assigned to dictate discharge summary on this account, and I was not involved in the patient's management. Mercy Rose NP March 26, 2018 14:22
== END 2018-03-25 11:40 | disposition home or self-care (01) | DRG 977 ==
LOC: EMR 18:34 → 4E 18:37 → EDBEDREQ 20:11
DX: K52.9 Noninfective gastroenteritis and colitis, unspecified (principal); B20 Human immunodeficiency virus [HIV] disease; G89.29 Other chronic pain; R10.9 Unspecified abdominal pain; K59.00 Constipation, unspecified; F15.10 Other stimulant abuse, uncomplicated; K59.09 Other constipation; K62.3 Rectal prolapse; B02.9 Zoster without complications; Z86.19 Personal history of other infectious and parasitic diseases
CPT/HCPCS: 36415; 71045; 74177; 74181; 76700; 80048; 80053; 80076; 80307; 82248; 82550; 82553; 83605; 83615; 83735; 84100; 84484; 85007; 85025; 85610; 85730; 86360; 86705; 86709; 86803; 87340; 93005; 99285; J2405